=== PATIENT | female | born 1995 | race Caucasian/White ===

== ENCOUNTER 2017-09-13 20:47 | Inpatient (IN) | payer OTHER ==
[2017-09-13] MEDS ORDERED: METHYLERGONOVINE 0.2MG/ML AMP IM PRN (20:59)
[2017-09-13] MEDS ORDERED: BUTORPHANOL 1 MG/ML INJ IV PRN (20:59)
[2017-09-13] MEDS ORDERED: PENICILLIN 5 MU in NA CHLORIDE 0.9% 100 ML IV ONE (20:59)
[2017-09-13] MEDS ORDERED: PROMETHAZINE 25 MG/ML VIAL IM PRN (20:59)
[2017-09-13] MEDS ORDERED: MEPERIDINE HCL 25 MG/0.5 ML IV PRN (20:59)
[2017-09-13] MEDS ORDERED: Ringers Lactate 1,000 ML IV PRN (20:59)
[2017-09-13] MEDS ORDERED: CARBOPROST TROME 250 MCG/ML IM PRN (20:59)
[2017-09-13] MEDS ORDERED: Ringers Lactate 1,000 ML IV SCH (21:00)
[2017-09-13] MEDS ORDERED: OXYTOCIN/LR 20 UNIT/1,000 ML BAG IV SCH (21:00)
[2017-09-13] MEDS ORDERED: PENICILLIN G POT 5 MU/100 ML BAG IV ONE (21:12)
[2017-09-13 21:29] LABS: RPR Titer ND
[2017-09-13 21:32] LABS: Absolute Lymphocytes (CBC) 2.1 K/uL (0.7-4.9); Absolute Monocytes 0.7 K/uL (0.1-1.3); Absolute Neutrophil 4.8 K/uL (1.8-8.0); Basophils % 0.3 % (0-1.3); Eosinophils % 1.7 % (0-4.4); Lymphocytes % 27.2 % (15.3-44.8); MCH 30.7 pg (27.0-35.0); MCV 89.3 fL (80-100); MPV 9.7 fL (7.6-11.3); Monocytes % 8.7 % (3.3-12.3); RBC Red Blood Cell Count 3.36 M/uL (3.86-4.86)
[2017-09-13 22:08] VITALS: BMI 32.9
[2017-09-13] MEDS ORDERED: ROPIVACAINE HCL 100 ML IV PRN (23:50)
[2017-09-13] MEDS ORDERED: ROPIVACAINE HCL 0.2% 20ML AMP IV ONE (23:54)
[2017-09-13] MEDS ORDERED: FENTANYL CITR 100 MCG/2 ML IV ONE (23:57)
[2017-09-14] MEDS ORDERED: PENICILLIN 2.5 MU in NA CHLORIDE 0.9% 100 ML IV SCH (01:00)
[2017-09-14] MEDS ORDERED: PENICILLIN G POT 5 MU/VIAL IV ONE (01:20)
[2017-09-14] MEDS ORDERED: NA CHLORIDE 0.9% 200 ML IV ONE (01:21)
[2017-09-14] MEDS ORDERED: BISACODYL 10 MG RECTAL SUPP RECT PRN (01:54)
[2017-09-14] MEDS ORDERED: Oxycodone HCl/Acetaminophen 1 TAB TAB PO PRN ×2 (01:54)
[2017-09-14] MEDS ORDERED: ACETAMINOPHEN 500 MG TAB PO PRN (01:54)
[2017-09-14] MEDS ORDERED: DIPHENHYDRAMINE 25 MG TAB/CAP PO PRN (01:54)
[2017-09-14] MEDS ORDERED: DOCUSATE NA/SENNA CONC 1 TAB PO PRN (01:54)
[2017-09-14] MEDS ORDERED: MEASLES,MUMPS,RUBELLA VAC 0.5ML SUBQ ONE (01:54)
[2017-09-14] MEDS ORDERED: OXYTOCIN/LR 20 UNIT/1,000 ML BAG IV SCH (02:00)
--- NOTE | 2017-09-14 03:29 | PREOPHP ---
Date of Admission: 09/13/2017 History: A 22-year-old multiparous female, 3, para 3. The patient has a history of early de liveries, 36 weeks and 6 days on admission, in active labor, 37 weeks on delivery. The patient came in in active labor. Epidural anesthesia was established at 4 cm. The patient went rapidly to comple te. Second stage consisted of 1 push. Delivery of an estimated 6-pound plus female. Apgars 9, 9 or 9, 10. No episiotomy. No laceration. Schultze delivery of the placenta. Estimated blood loss les s than 200 cc. No episiotomy. No lacerations worthy of suturing. The patient received one 5 millio n unit dose of penicillin prophylaxis for beta-strep positive status and a partial dose. Tolerated a ll procedures well. Final Diagnoses: Intrauterine gestation, 37 weeks at the time of delivery, epidural anesthesia, peni cillin prophylaxis. TIA/ROMINA Voice ID: [id number]
[2017-09-14] MEDS: IBUPROFEN 200 MG TAB PO PRN ×2 (08:13→17:38)
[2017-09-14] MEDS ORDERED: Tdap (Diph,Pertuss(Acell),Tet Vac) 0.5 ML SYR IMVAC ONE (08:40)
[2017-09-14 20:56] LABS: RPR (Rapid Plasma Reagin) NON-REACT (NON-REACT)
[2017-09-15 07:41] VITALS: BP 118/76; TEMP 96.9
--- NOTE | 2017-09-15 11:01 | DS ---
Date of Discharge: 09/15/2017 This is a 22-year-old, 3, para 2, at 36 weeks 6 days on admission, 37 weeks on delivery. His tory of early labor. Rh positive, nonimmune to Rubella. Beta strep positive. Admitted with ruptured membranes and in early labor. Delivered at a litter after 1 o'clock in the morning of a 6-pound 4 o unce female. Apgars 9 and 9 or even 9 and 10. No episiotomy. No laceration. Schultze delivery of the placenta was inspected and noted to be intact and normal. Less than 200 cc blood loss. The kenney ent has received 1 full dose of 5 million units of penicillin and 1 partial dose of 2.5 million units of penicillin. is afebrile, ambulating, and voiding. Lochia is normal. She had an epid ural and has no post epidural problems. Dismissed this morning to return to my office in 6 weeks for followup, to report any temperature elevation of 100 degrees or greater, severe pain, heavy bleeding , or any other type of abnormalities. Given 10 tramadol tablets, although she says she has probably will not even get prescription filled and may in fact destroy the prescription before she leaves the hospital. Final Diagnoses: Intrauterine gestation, 37 weeks at delivery, epidural anesthesia, penicillin proph ylaxis. Rubella immunization needed. Tdap has been offered numerous times during the and again today, the patient declines. TIA/ROMINA Voice ID: [id number] Report ID: [id number]
--- NOTE | 2017-09-17 11:19 | OP ---
Surgeon: Micky Mahan MD A 22-year-old, 3, para 2, history of labor with the last delivery, 36 weeks and 6 day s on admission, came in early labor. Rh positive, nonimmune to Rubella. This has been discussed and refused Tdap administration during her several times. Admitted with ruptured membranes, i n early labor. Went fairly rapidly to complete. Requested and received epidural anesthesia. Second stage of 30 minutes or less. Spontaneous vaginal delivery of a 6-pound 4 ounce female, Apgars 9 and 9. No episiotomy. No laceration. Schultze delivery of the placenta. Less than 200 cc blood loss. The patient received penicillin 5 million units and a partial dose of 2.5 million units before the delivery. Final Diagnoses: Intrauterine gestation, 37 weeks at time of delivery. Penicillin prophylaxis, Tdap , and Rubella immunization discussed several times. TIA/ROMINA Voice ID: [id number] Report ID: [id number]
[2017-09-18 13:31] LABS: HBsAG Nonreactive (Nonreactive)
--- NOTE | 2017-09-21 07:41 | OP ---
Surgeon: Micky Mahan MD Indication And Procedure: Marie Mark is a 22-year-old 3, para 2, 36 weeks 6 days, history of early labor, came in, in labor, Rh positive, nonimmune to Rubella, beta Strep positive. Admitted with ruptured membranes and in early labor. Delivered of a 6-pound 4-ounce female. Apgars 9 and 9. No episiotomy. No laceration. Schultze delivery of the placenta, inspected and noted to be intact and normal. Less than 200 cc blood loss. The patient received 1 full dose of penicillin 5 million units and a partial dose of 2.5 million units before the delivery, tolerated all procedures well. Final Diagnoses: Thirty-seven weeks at time of delivery. Penicillin prophylaxis. TIA/ROMINA Voice ID: [id number] Report ID: [id number]
== END 2017-09-15 08:00 | disposition home or self-care (01) | DRG 775 ==
LOC: 2ND-WC 20:47
PROVIDERS: ADMIT Specialist; ATTEND Specialist
PROC: 10E0XZZ Delivery of Products of Conception, External Approach (ICD-10-PCS; principal; 2017-09-14)
DX: O99.824 Streptococcus B carrier state complicating childbirth (principal); Z3A.37 37 weeks gestation of pregnancy; Z37.0 Single live birth; Z28.21 Immunization not carried out because of patient refusal; Z91.040 Latex allergy status
CPT/HCPCS: 36415; 83986; 85025; 86592; 86901; 87340; J2210; J2590; J2795; J3010

== ENCOUNTER 2018-07-10 11:42 | Emergency (ER) | payer OTHER, SELFPAY ==
[2018-07-10 13:13] LABS: Urine Blood NEGATIVE (NEG); Urine Glucose NEGATIVE (NEG); Urine Protein NEGATIVE (NEG); Urine Specific Gravity 1.015 (1.005-1.030); Urine pH 7.5 (5.0-7.0)
[2018-07-10 14:03] LABS: Absolute Lymphocytes (CBC) 2.3 K/uL (0.7-4.9); Absolute Monocytes 0.3 K/uL (0.1-1.3); Basophils % 0.7 % (0-1.3); Eosinophils % 4.4 % (0-4.4); Hematocrit 44.1 % (36.0-45.0); Lymphocytes % 38.8 % (15.3-44.8); MPV 9.8 fL (7.6-11.3); Monocytes % 5.1 % (3.3-12.3); RBC Red Blood Cell Count 4.77 M/uL (3.86-4.86)
[2018-07-10 14:21] LABS: ALT/SGPT 35 U/L (12-78); AST/SGOT 28 U/L (15-37); Albumin 4.6 g/dL (3.4-5.0); Alkaline Phosphatase 102 U/L (45-117); BUN Blood Urea Nitrogen 9 mg/dL (7-18); Bicarbonate 31 mmol/L (21-32); Bilirubin Direct 0.2 mg/dL (0-0.2); Bilirubin Total 0.7 mg/dL (0.2-1.0); Glucose Level 87 mg/dL (74-106); Lipase 163 U/L (73-393); Potassium 3.8 mmol/L (3.5-5.1); Protein, Total 8.5 g/dL (6.4-8.2); Sodium Level 139 mmol/L (136-145)
[2018-07-10] MEDS ORDERED: TRAMADOL HCL 50 MG TAB ONE (14:45)
--- NOTE | 2018-07-10 14:50 | RAD REPORT ---
EXAM DESCRIPTION: CT - Abdomen Pelvis W Contrast - 07/10/2018 2:38 pm CLINICAL HISTORY: Abdominal pain/hematochezia. COMPARISON: none. TECHNIQUE: Computed axial tomography of the abdomen pelvis was obtained. 100 cc Isovue-300 was admin istered intravenously. Oral contrast was not requested which limits evaluation of bowel. All CT scans are performed using dose optimization technique as appropriate and may include automated exposure control or mA/KV adjustment according to patient size. FINDINGS: The liver, spleen, pancreas, adrenal and kidneys appear unremarkable. There is no evidence of diverticulitis. Normal appendix 2 centimeter left ovarian cyst without significant free fluid IMPRESSION: A 2 centimeter left ovarian cyst without significant free fluid
--- NOTE | 2018-07-10 16:30 | EDPHYS ---
Physician Documentation [facility] Name: Marie Mark Age: 23 yrs Sex: Female : 1995 Arrival Date: 07/10/2018 Time: 11:46 Bed 25 Private MD: ED Physician Tushar Crespo HPI: 07/10 18:49 This 23 yrs old Female presents to ER via Ambulatory with complaints of kdr Bloody Stools, Weakness. 18:49 The patient presents with abdominal pain that is diffuse, abdominal distention that is kdr diffuse. Onset: The symptoms/episode began/occurred gradually, Began on Saturday and has been intermittent since. The symptoms do not radiate. Associated signs and symptoms: Pertinent positives: nausea, dark blood rectally. The symptoms are described as achy, crampy, intermittent, vague, waxing/waning. Modifying factors: The symptoms are alleviated by. Severity of pain: At its worst the pain was moderate in the emergency department the pain has improved moderately. The patient has not experienced similar symptoms in the past. The patient has not recently seen a physician. 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 - Social history:: Smoking status: Patient uses tobacco products, smokes one-half pack cigarettes per day. - Ebola Screening: : Patient negative for fever greater than or equal to 101.5 degrees Fahrenheit, and additional compatible Ebola Virus Disease symptoms Patient denies exposure to infectious person Patient denies travel to an Ebola-affected area in the 21 days before illness onset No symptoms or risks identified at this time. ROS: 18:49 Constitutional: Negative for fever, chills, and weight loss, Eyes: Negative for injury, kdr pain, redness, and discharge, ENT: Negative for injury, pain, and discharge, Neck: Negative for injury, pain, and swelling, Cardiovascular: Negative for chest pain, palpitations, and edema, Respiratory: Negative for shortness of breath, cough, wheezing, and pleuritic chest pain, Back: Negative for injury and pain, : Negative for injury, bleeding, discharge, and swelling, MS/Extremity: Negative for injury and deformity, Skin: Negative for injury, rash, and discoloration, Neuro: Negative for headache, weakness, numbness, tingling, and seizure activity. Psych: Negative for depression, anxiety, suicide ideation, homicidal ideation, and hallucinations, Allergy/Immunology: Negative for hives, rash, and allergies, Endocrine: Negative for neck swelling, polydipsia, polyuria, polyphagia, and marked weight changes, Hematologic/Lymphatic: Negative for swollen nodes, abnormal bleeding, and unusual bruising. 18:49 Abdomen/GI: Positive for abdominal pain, nausea, abdominal cramps, abdominal distension, rectal bleeding, Negative for vomiting, abdominal distension, dysphagia, hematemesis, black/tarry stool. Exam: 18:49 Constitutional: This is a well developed, well nourished patient who is awake, alert, kdr and in no acute distress. Head/Face: Normocephalic, atraumatic. Eyes: Pupils equal round and reactive to light, extra-ocular motions intact. Lids and lashes normal. Conjunctiva and sclera are non-icteric and not injected. Cornea within normal limits. Periorbital areas with no swelling, redness, or edema. Neck: Trachea midline, no thyromegaly or masses palpated, and no cervical lymphadenopathy. Supple, full range of motion without nuchal rigidity, or vertebral point tenderness. No Meningismus. Chest/axilla: Normal chest wall appearance and motion. Nontender with no deformity. No lesions are appreciated. Cardiovascular: Regular rate and rhythm with a normal S1 and S2. No gallops, murmurs, or rubs. Normal PMI, no JVD. No pulse deficits. Respiratory: Lungs have equal breath sounds bilaterally, clear to auscultation and percussion. No rales, rhonchi or wheezes noted. No increased work of breathing, no retractions or nasal flaring. Back: No spinal tenderness. No costovertebral tenderness. Full range of motion. 18:49 Abdomen/GI: Inspection: abdomen appears normal, Bowel sounds: diminished, in all quadrants, Palpation: soft, mild abdominal tenderness, in the right upper quadrant, left upper quadrant, right lower quadrant and abdomen diffusely, mass, is not appreciated, rebound tenderness, is not appreciated, voluntary guarding, is not appreciated, involuntary guarding, is not appreciated, Rectal exam: rectal tone normal, Stool: licona, guaiac negative. Vital Signs: 12:20 BP 134 / 75; Pulse 85; Resp 16; Temp 98.4; Pulse Ox 99% on R/A; Weight 77.11 kg; Height iw 5 ft. 2 in. (157.48 cm); Pain 6/10; 13:05 BP 112 / 73; Pulse 83; Resp 17 S; Temp 98.1(O); Pulse Ox 98% on R/A; ca1 14:00 BP 112 / 82; Pulse 70; Resp 17 S; Temp 98(O); Pulse Ox 100% on R/A; ca1 15:00 BP 114 / 75; Pulse 64; Resp 18 S; Temp 98.4(O); Pulse Ox 100% on R/A; ca1 16:00 BP 113 / 72; Pulse 68; Resp 18 S; Temp 98.2(O); Pulse Ox 100% on R/A; ca1 17:00 BP 114 / 73; Pulse 67; Resp 18 S; Temp 98.1(O); Pulse Ox 100% on R/A; ca1 12:20 Body Mass Index 31.09 (77.11 kg, 157.48 cm) iw MDM: 16:29 Patient medically screened. kdr 18:49 Data reviewed: vital signs, nurses notes, old medical records, radiologic studies. kdr Counseling: I had a detailed discussion with the patient and/or guardian regarding: the historical points, exam findings, and any diagnostic results supporting the discharge/admit diagnosis, lab results, radiology results, the need for outpatient follow up. 07/10 12:53 Order name: Urine Culture iw 07/10 12:55 Order name: Urine Dipstick--Ancillary (enter results); Complete Time: 13:40 ms 07/10 12:55 Order name: Urine --Ancillary (enter results); Complete Time: 13:40 ms 07/10 13:10 Order name: Basic Metabolic Panel; Complete Time: 14: ca1 07/10 13:10 Order name: CBC with Diff; Complete Time: 14:27 ca1 07/10 13:10 Order name: Creatinine for Radiology; Complete Time: 14: ca1 07/10 12:53 Order name: Urine Dipstick-Ancillary (obtain specimen); Complete Time: 12:53 iw 07/10 12:53 Order name: Urine Test (obtain specimen); Complete Time: 12:53 iw 07/10 13:10 Order name: Hepatic Function; Complete Time: 14:27 ca1 07/10 13:10 Order name: Lipase; Complete Time: 14:27 ca1 07/10 13:10 Order name: IV Saline Lock; Complete Time: 13:38 ca1 07/10 13:10 Order name: Labs collected and sent; Complete Time: 13:38 ca1 07/10 13:40 Order name: CT Abd/Pelvis - W/Contrast; Complete Time: 16:28 kdr Administered Medications: 14:32 Drug: traMADol 50 mg Route: PO; ca1 17:24 Follow up: Response: No adverse reaction; Pain is decreased ca1 Disposition: 07/10/18 16:29 Discharged to Home. Impression: Abdominal and pelvic pain. - Condition is Stable. - Discharge Instructions: Abdominal Pain, Adult. - Prescriptions for Bentyl 20 mg Oral Tablet - take 1 tablet by ORAL route every 6 hours As needed; 20 tablet. Pepcid 20 mg Oral Tablet - take 1 tablet by ORAL route every 12 hours for 5 days; 10 tablet. Zofran 4 mg Oral Tablet - take 1 tablet by ORAL route every 12 hours As needed; 6 tablet. Tramadol 50 mg Oral Tablet - take 1 tablet by ORAL route every 8 hours as needed; 12 tablet. - Medication Reconciliation Form, Thank You Letter, Antibiotic Education, Prescription Opioid Use form. - Follow up: Private Physician; When: 2 - 3 days; Reason: If symptoms return, Further diagnostic work-up, Recheck today's complaints, Continuance of care, Re-evaluation by your physician. - Problem is new. - Symptoms have improved. Signatures: Dispatcher [employer] EDMS Tushar Crespo MD MD kdr Magdalena Zayas RN RN iw Sirena Upton RN RN ca1 Corrections: (The following items were deleted from the chart) 17:25 16:29 07/10/2018 16:29 Discharged to Home. Impression: Abdominal and pelvic pain. ca1 Condition is Stable. Forms are Medication Reconciliation Form, Thank You Letter, Antibiotic Education, Prescription Opioid Use. Follow up: Private Physician; When: 2 - 3 days; Reason: If symptoms return, Further diagnostic work-up, Recheck today's complaints, Continuance of care, Re-evaluation by your physician. Problem is new. Symptoms have improved. kdr
--- NOTE | 2018-07-10 16:30 | ER ---
Nurse's Notes [facility] Name: Marie Mark Age: 23 yrs Sex: Female : 1995 Arrival Date: 07/10/2018 Time: 11:46 Bed 25 Private MD: Diagnosis: Abdominal and pelvic pain Presentation: 07/10 12:18 Presenting complaint: Patient states: Saturday started having bloating and abd pain, iw Saturday had blood in stool, dark red, had loose stool, last BM was yesterday with blood. Transition of care: patient was not received from another setting of care. Onset of symptoms was July 06, 2018. Risk Assessment: Do you want to hurt yourself or someone else? Patient reports no desire to harm self or others. Initial Sepsis Screen: Does the patient meet any 2 criteria? No. Patient's initial sepsis screen is negative. Does the patient have a suspected source of infection? No. Patient's initial sepsis screen is negative. Care prior to arrival: None. 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 - Social history:: Smoking status: Patient uses tobacco products, smokes one-half pack cigarettes per day. - Ebola Screening: : Patient negative for fever greater than or equal to 101.5 degrees Fahrenheit, and additional compatible Ebola Virus Disease symptoms Patient denies exposure to infectious person Patient denies travel to an Ebola-affected area in the 21 days before illness onset No symptoms or risks identified at this time. Screenin:34 Abuse screen: Denies threats or abuse. Denies injuries from another. Nutritional aj screening: No deficits noted. Tuberculosis screening: No symptoms or risk factors identified. Fall Risk None identified. Assessment: 12:34 General: Appears in no apparent distress. comfortable, Behavior is calm, cooperative, aj appropriate for age. Pain: Complains of pain in right upper quadrant and left upper quadrant. Neuro: Level of Consciousness is awake, alert, obeys commands, Oriented to person, place, time, situation, Appropriate for age. Respiratory: Airway is patent Respiratory effort is even, unlabored, Respiratory pattern is regular, symmetrical. GI: Abdomen is distended, Stools are reported to be Dark red blood streaking. Abdomen is tender to palpation in right upper quadrant and left upper quadrant. Derm: Skin is intact, is healthy with good turgor, Skin is pink, warm \T\ dry. normal. 13:05 Reassessment: Patient appears in no apparent distress at this time. No changes from ca1 previously documented assessment. Patient and/or family updated on plan of care and expected duration. Pain level reassessed. Patient is alert, oriented x 3, equal unlabored respirations, skin warm/dry/pink. 14:00 Reassessment: Patient appears in no apparent distress at this time. Patient and/or ca1 family updated on plan of care and expected duration. Pain level reassessed. Patient is alert, oriented x 3, equal unlabored respirations, skin warm/dry/pink. 14:38 Reassessment: Pt to CT scan. ca1 14:55 Reassessment: Patient appears in no apparent distress at this time. Patient is alert, ca1 oriented x 3, equal unlabored respirations, skin warm/dry/pink. 15:44 Reassessment: Patient appears in no apparent distress at this time. Patient and/or ca1 family updated on plan of care and expected duration. Pain level reassessed. Patient is alert, oriented x 3, equal unlabored respirations, skin warm/dry/pink. 16:40 Reassessment: Patient appears in no apparent distress at this time. Patient is alert, ca1 oriented x 3, equal unlabored respirations, skin warm/dry/pink. Patient states feeling better. 17:20 Reassessment: Pt instructed on not driving self to home or anywhere when taking ca1 Tramadol. PT verbalized understanding of instructions. Vital Signs: 12:20 BP 134 / 75; Pulse 85; Resp 16; Temp 98.4; Pulse Ox 99% on R/A; Weight 77.11 kg; Height iw 5 ft. 2 in. (157.48 cm); Pain 6/10; 13:05 BP 112 / 73; Pulse 83; Resp 17 S; Temp 98.1(O); Pulse Ox 98% on R/A; ca1 14:00 BP 112 / 82; Pulse 70; Resp 17 S; Temp 98(O); Pulse Ox 100% on R/A; ca1 15:00 BP 114 / 75; Pulse 64; Resp 18 S; Temp 98.4(O); Pulse Ox 100% on R/A; ca1 16:00 BP 113 / 72; Pulse 68; Resp 18 S; Temp 98.2(O); Pulse Ox 100% on R/A; ca1 17:00 BP 114 / 73; Pulse 67; Resp 18 S; Temp 98.1(O); Pulse Ox 100% on R/A; ca1 12:20 Body Mass Index 31.09 (77.11 kg, 157.48 cm) iw ED Course: 11:46 Patient arrived in ED. mr 12:12 Tushar Crespo MD is Attending Physician. kdr 12:20 Triage completed. iw 12:20 Arm band placed on. iw 12:22 Nicole Erazo, RN is Primary Nurse. aj 12:34 Patient has correct armband on for positive identification. aj 12:34 No provider procedures requiring assistance completed. aj 13:20 Urine collected: clean catch specimen, clear, chalo colored. jp3 13:25 Pulse ox on. NIBP on. jp3 13:25 Placed in gown. Bed in low position. Call light in reach. Side rails up X 1. jp3 13:35 Initial lab(s) drawn, by me, sent to lab. Inserted saline lock: 22 gauge in left jp3 antecubital area, using aseptic technique. Blood collected. 13:43 Basic Metabolic Panel Sent. ca1 13:43 CBC with Diff Sent. ca1 13:43 Creatinine for Radiology Sent. ca1 13:43 Hepatic Function Sent. ca1 13:43 Lipase Sent. ca1 14:38 CT completed. Patient tolerated procedure well. Patient moved to CT. Patient moved back id from CT. 14:39 CT Abd/Pelvis - W/Contrast In Process Unspecified. EDMS 17:20 IV discontinued, intact, bleeding controlled, No redness/swelling at site. Pressure ca1 dressing applied. Administered Medications: 14:32 Drug: traMADol 50 mg Route: PO; ca1 17:24 Follow up: Response: No adverse reaction; Pain is decreased ca1 Outcome: 16:29 Discharge ordered by . kdr 17:20 Discharged to home ambulatory. ca1 17:20 Condition: stable 17:20 Instructed on discharge instructions, follow up and referral plans. medication usage, Demonstrated understanding of instructions, follow-up care, medications, Prescriptions given X 4. 17:25 Patient left the ED. ca1 Signatures: Dispatcher [employer] Nicole Fung RN RN aj Rittger, Kevin, MD MD [facility] Ousmane, Parul mr Magdalena Zayas RN RN iw Jordan, Nathan nj Pisarski, Jacob jp3 Sirena Upton RN RN ca1 Corrections: (The following items were deleted from the chart) 17:23 17:10 Reassessment: Pt instructed on not driving self to home or anywhere when taking ca1 Tramadol. PT verbalized understanding of instructions ca1
[2018-07-10 17:38] VITALS: O2SAT 100
[2018-07-10 17:42] VITALS: BP 114/73; TEMP 98.1
== END 2018-07-10 17:25 | disposition home or self-care (01) ==
LOC: ER 11:42
DX: R10.9 Unspecified abdominal pain (principal); R10.2 Pelvic and perineal pain; F17.210 Nicotine dependence, cigarettes, uncomplicated
CPT/HCPCS: 36415; 74177; 80048; 80076; 81003; 81025; 83690; 85025; 87086; 87088; 99284; Q9967

== ENCOUNTER 2018-09-15 16:04 | Emergency (ER) | payer SELFPAY ==
[2018-09-15 17:48] LABS: Urine Blood 1+ (NEG); Urine Glucose NEGATIVE (NEG); Urine Protein NEGATIVE (NEG); Urine Specific Gravity 1.015 (1.005-1.030)
[2018-09-15 18:18] LABS: Absolute Lymphocytes (CBC) 2.1 K/uL (0.7-4.9); Basophils % 0.5 % (0-1.3); Hematocrit 36.7 % (36.0-45.0); Lymphocytes % 27.2 % (15.3-44.8); MPV 9.9 fL (7.6-11.3); RBC Red Blood Cell Count 3.92 M/uL (3.86-4.86)
[2018-09-15 18:57] LABS: BUN Blood Urea Nitrogen 5 mg/dL (7-18); Bicarbonate 25 mmol/L (21-32); Glucose Level 85 mg/dL (74-106); HCG, Quantitative 44143 mIU/mL (1-3); Potassium 3.3 mmol/L (3.5-5.1); Sodium Level 140 mmol/L (136-145)
--- NOTE | 2018-09-15 18:59 | EDPHYS ---
Physician Documentation [facility] Name: Marie Mark Age: 23 yrs Sex: Female : 1995 Arrival Date: 09/15/2018 Time: 16:07 Bed 10 Private MD: ED Physician Cj Aggarwal HPI: 09/16 01:36 This 23 yrs old Female presents to ER via Ambulatory with complaints of kb Possible , Vaginal Bleeding. 01:36 The patient presents to the emergency department with vaginal bleeding, that is light. kb course: care: none, Leakage of Fluid: none appreciated, Ultrasound: the patient has not had an ultrasound, Risk/complications: no obvious risks or complications are appreciated. Previous pregnancies: in previous pregnancies patient has had. Associated signs and symptoms: Pertinent positives: vaginal bleeding. The patient has not experienced similar symptoms in the past. The patient has not recently seen a physician. "I think I'm having a miscarriage because I had some bleeding." Took a home test that was positive. States she only took the test because she was having breast tenderness and her told her to take one. Reports she takes her control religiously so she didn't think it would be positive. States her last period was 06/23/18, but she doesn't take the placebo pills in the pack so she misses periods. 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 - Social history:: Smoking status: Patient/guardian denies using tobacco. - Ebola Screening: : No symptoms or risks identified at this time. ROS: 09/16 01:35 Constitutional: Negative for fever, chills, and weight loss, ENT: Negative for injury, kb pain, and discharge, Neck: Negative for injury, pain, and swelling, Cardiovascular: Negative for chest pain, palpitations, and edema, Respiratory: Negative for shortness of breath, cough, wheezing, and pleuritic chest pain, Abdomen/GI: Negative for abdominal pain, nausea, vomiting, diarrhea, and constipation, Back: Negative for injury and pain, MS/Extremity: Negative for injury and deformity, Skin: Negative for injury, rash, and discoloration, Neuro: Negative for headache, weakness, numbness, tingling, and seizure. : Positive for vaginal bleeding, Negative for urinary symptoms. Exam: 01:35 Constitutional: This is a well developed, well nourished patient who is awake, alert, kb and in no acute distress. Head/Face: Normocephalic, atraumatic. ENT: Nares patent. No nasal discharge, no septal abnormalities noted. Tympanic membranes are normal and external auditory canals are clear. Oropharynx with no redness, swelling, or masses, exudates, or evidence of obstruction, uvula midline. Mucous membranes moist. Neck: Trachea midline, no thyromegaly or masses palpated, and no cervical lymphadenopathy. Supple, full range of motion without nuchal rigidity, or vertebral point tenderness. No Meningismus. Chest/axilla: Normal chest wall appearance and motion. Nontender with no deformity. No lesions are appreciated. Cardiovascular: Regular rate and rhythm with a normal S1 and S2. No gallops, murmurs, or rubs. Normal PMI, no JVD. No pulse deficits. Respiratory: Lungs have equal breath sounds bilaterally, clear to auscultation and percussion. No rales, rhonchi or wheezes noted. No increased work of breathing, no retractions or nasal flaring. Abdomen/GI: Soft, non-tender, with normal bowel sounds. No distension or tympany. No guarding or rebound. No evidence of tenderness throughout. Back: No spinal tenderness. No costovertebral tenderness. Full range of motion. Skin: Warm, dry with normal turgor. Normal color with no rashes, no lesions, and no evidence of cellulitis. MS/ Extremity: Pulses equal, no cyanosis. Neurovascular intact. Full, normal range of motion. Neuro: Awake and alert, GCS 15, oriented to person, place, time, and situation. Cranial nerves II-XII grossly intact. Motor strength 5/5 in all extremities. Sensory grossly intact. Cerebellar exam normal. Normal gait. Vital Signs: 09/15 16:14 BP 132 / 76; Pulse 97; Resp 16; Temp 98; Pulse Ox 98% ; Weight 72.57 kg; Height 5 ft. 2 hb in. (157.48 cm); Pain 4/10; 17:11 BP 127 / 75; Pulse 72; Resp 18; Pulse Ox 99% on R/A; aj1 19:47 BP 122 / 79; Pulse 88; Resp 18; Pulse Ox 99% on R/A; aj1 16:14 Body Mass Index 29.26 (72.57 kg, 157.48 cm) hb MDM: 16:51 Patient medically screened. kb 09/16 01:36 Data reviewed: vital signs, nurses notes. Data interpreted: Pulse oximetry: on room air kb is 99 %. Interpretation: normal. Counseling: I had a detailed discussion with the patient and/or guardian regarding: the historical points, exam findings, and any diagnostic results supporting the discharge/admit diagnosis, lab results, radiology results, the need for outpatient follow up, an OB/Gyne specialist, to return to the emergency department if symptoms worsen or persist or if there are any questions or concerns that arise at home. 09/15 17:26 Order name: Quantitative Hcg; Complete Time: 18:59 kb 09/15 17:26 Order name: Abo/rh Typing; Complete Time: 19:07 kb 09/15 17:26 Order name: Basic Metabolic Panel; Complete Time: 18:59 kb 09/15 17:26 Order name: CBC with Diff; Complete Time: 18:23 kb 09/15 17:29 Order name: Urine Dipstick--Ancillary (enter results); Complete Time: 17:49 ss 09/15 17:29 Order name: Urine --Ancillary (enter results); Complete Time: 17:49 ss 09/15 16:32 Order name: Urine Test (obtain specimen); Complete Time: 16:38 kb 09/15 16:32 Order name: Urine Dipstick-Ancillary (obtain specimen); Complete Time: 16:38 kb 09/15 17:26 Order name: IV Saline Lock; Complete Time: 18:16 kb 09/15 17:26 Order name: Labs collected and sent; Complete Time: 18:16 kb 09/15 17:26 Order name: NPO; Complete Time: 17:59 kb 09/15 19:04 Order name: OB Limited; Complete Time: 19:19 EDMS Administered Medications: No medications were administered Disposition: 07:57 Co-signature as Attending Physician, Cj Aggarwal MD I agree with the assessment and wa plan of care. Disposition: 09/15/18 18:53 Discharged to Home. Impression: 11 weeks gestation of . - Condition is Stable. - Discharge Instructions: First Trimester of , [id number]. - Medication Reconciliation Form, Thank You Letter, Antibiotic Education, Prescription Opioid Use form. - Follow up: Emergency Department; When: As needed; Reason: Worsening of condition. Follow up: Private Physician; When: 2 - 3 days; Reason: Recheck today's complaints, Continuance of care, Re-evaluation by your physician. Signatures: Dispatcher [employer] EDLA Sadie Radford, FRAMING MILL OPERATOR-C FRAMING MILL OPERATOR-Jerryb Brittany Enriquez RN RN aj1 Mirian Bae RN RN Cj Aggarwal MD MD wa Corrections: (The following items were deleted from the chart) 09/15 19:04 18:28 Transvaginal Ob+US.RAD.BRZ ordered. [facility] 19:49 18:53 09/15/2018 18:53 Discharged to Home. Impression: 11 weeks gestation of . aj1 Condition is Stable. Forms are Medication Reconciliation Form, Thank You Letter, Antibiotic Education, Prescription Opioid Use. Follow up: Emergency Department; When: As needed; Reason: Worsening of condition. Follow up: Private Physician; When: 2 - 3 days; Reason: Recheck today's complaints, Continuance of care, Re-evaluation by your physician. kb
--- NOTE | 2018-09-15 18:59 | ER ---
Nurse's Notes [facility] [place], [place] Name: Marie Mark Age: 23 yrs Sex: Female : 1995 Arrival Date: 09/15/2018 Time: 16:07 Bed 10 Private MD: Diagnosis: 11 weeks gestation of Presentation: 09/15 16:11 Presenting complaint: Bright red vaginal bleeding and lower abdominal cramping that hb started 1 hr [employer]. 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 LMP June 23. Transition of care: patient was not received from another setting of care. Onset of symptoms was September 15, 2018. Risk Assessment: Do you want to hurt yourself or someone else? Patient reports no desire to harm self or others. Initial Sepsis Screen: Does the patient meet any 2 criteria? No. Patient's initial sepsis screen is negative. Does the patient have a suspected source of infection? No. Patient's initial sepsis screen is negative. Care prior to arrival: None. 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 - Social history:: Smoking status: Patient/guardian denies using tobacco. - Ebola Screening: : No symptoms or risks identified at this time. Screenin:11 Abuse screen: Denies threats or abuse. Denies injuries from another. Nutritional aj1 screening: No deficits noted. Tuberculosis screening: No symptoms or risk factors identified. 19:48 Fall Risk None identified. aj1 Assessment: 17:11 General: Appears in no apparent distress. comfortable, Behavior is calm, cooperative, aj1 appropriate for age. Pain: Complains of pain in right lower quadrant and left lower quadrant Quality of pain is described as crampy. Neuro: Level of Consciousness is awake, alert, obeys commands. Cardiovascular: Patient's skin is warm and dry. Respiratory: Airway is patent Respiratory effort is even, unlabored, Respiratory pattern is regular, symmetrical. GI: No signs and/or symptoms were reported involving the gastrointestinal system. : Reports vaginal bleeding that is bright red, light flow. : Patient reports that vaginal bleeding has slowed down at this time. EENT: No signs and/or symptoms were reported regarding the EENT system. Derm: No signs and/or symptoms reported regarding the dermatologic system. Skin is pink, warm \T\ dry. normal. Musculoskeletal: No signs and/or symptoms reported regarding the musculoskeletal system. Circulation, motion, and sensation intact. 18:16 Reassessment: Patient appears in no apparent distress at this time. No changes from aj1 previously documented assessment. Patient and/or family updated on plan of care and expected duration. Pain level reassessed. Patient is alert, oriented x 3, equal unlabored respirations, skin warm/dry/pink. 19:47 Reassessment: Patient appears in no apparent distress at this time. No changes from aj1 previously documented assessment. Patient and/or family updated on plan of care and expected duration. Pain level reassessed. Patient is alert, oriented x 3, equal unlabored respirations, skin warm/dry/pink. Vital Signs: 16:14 BP 132 / 76; Pulse 97; Resp 16; Temp 98; Pulse Ox 98% ; Weight 72.57 kg; Height 5 ft. 2 hb in. (157.48 cm); Pain 4/10; 17:11 BP 127 / 75; Pulse 72; Resp 18; Pulse Ox 99% on R/A; aj1 19:47 BP 122 / 79; Pulse 88; Resp 18; Pulse Ox 99% on R/A; aj1 16:14 Body Mass Index 29.26 (72.57 kg, 157.48 cm) hb ED Course: 16:07 Patient arrived in ED. mr 16:14 Triage completed. hb 16:14 Arm band placed on right wrist. hb 16:50 Sadie Radford FNP-C is PHCP. kb 16:50 Cj Aggarwal MD is Attending Physician. kb 17:04 Brittany Enriquez, BERNA is Primary Nurse. aj1 17:11 Patient has correct armband on for positive identification. Bed in low position. Call aj light in reach. 17:11 No provider procedures requiring assistance completed. aj1 18:00 Initial lab(s) drawn, by me, sent to lab. Inserted saline lock: 22 gauge in right aj1 antecubital area, using aseptic technique. Blood collected. 19:05 OB Limited In Process Unspecified. EDMS 19:48 IV discontinued, intact, bleeding controlled, No redness/swelling at site. Pressure aj1 dressing applied. Administered Medications: No medications were administered Outcome: 18:53 Discharge ordered by . aniyah 19:48 Discharged to home ambulatory. aj1 19:48 Condition: good 19:48 Discharge instructions given to patient, Instructed on discharge instructions, follow up and referral plans. Demonstrated understanding of instructions, follow-up care. 19:49 Patient left the ED. aj1 Signatures: Dispatcher [employer] EDMS Sadie Radford, ELECTRIC DEICER INSPECTOR-C ELECTRIC DEICER INSPECTOR-Brittany Drummond RN RN aj1 Parul Romeo Heather, BERNA RN hb
--- NOTE | 2018-09-15 19:13 | RAD REPORT ---
EXAM DESCRIPTION: US - OB Limited - 09/15/2018 7:04 pm CLINICAL HISTORY: with pelvic pain and vaginal bleeding FINDINGS: The uterus measures 11 x 8 x 10 centimeters. A normal appearing gestational sac is presen t within the endometrium. Within this is a pole with a crown-rump length 5.1 centimeters. Cardi ac activity 154 beats per minute. Left ovary is normal in size and echotexture. . An adnexal mass is not noted. Right ovary was not seen. No significant free fluid IMPRESSION: Single live intrauterine with an estimated gestational age 11 weeks 6 days ED D 03/31/2019
[2018-09-15 21:23] VITALS: O2SAT 99
[2018-09-15 21:26] VITALS: TEMP 98
[2018-09-15 21:28] VITALS: BP 122/79
== END 2018-09-15 19:49 | disposition home or self-care (01) ==
LOC: ER 16:04
DX: O46.91 Antepartum hemorrhage, unspecified, first trimester (principal); Z3A.11 11 weeks gestation of pregnancy
CPT/HCPCS: 36415; 76815; 80048; 81003; 81025; 84702; 85025; 86900; 86901; 99283

== ENCOUNTER 2020-08-14 13:25 | Emergency (ER) | payer SELFPAY ==
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
[2020-08-14 15:05] LABS: Urine Blood Negative (Negative); Urine Glucose Negative (Negative); Urine Protein Negative (Negative); Urine Specific Gravity 1.015 (1.005-1.030); Urine pH >=9.0 (5.0-7.0)
[2020-08-14 15:53] LABS: Urine Bacteria 20-50 /HPF (<20); Urine RBC <5 /HPF (NONE SEEN)
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
[2020-08-14] MEDS ORDERED: AZITHROMYCIN 250 MG TAB ONE (16:57)
[2020-08-14] MEDS ORDERED: CEFTRIAXONE 500 MG/VIAL ONE (16:57)
[2020-08-14 17:11] VITALS: TEMP 99.4; O2SAT 100
[2020-08-14 17:12] VITALS: BP 123/84
[2020-08-14 20:19] LABS: Urine Specific Gravity/Preg 1.015 (1.005-1.030)
[2020-08-17 14:10] LABS: HIV AG/AB 4TH GEN Non-reactive (Non-reactive)
[2020-08-17 18:49] LABS: HBsAG Nonreactive (Nonreactive)
== END 2020-08-14 16:53 | disposition home or self-care (01) ==
LOC: ER 13:25
DX: A64 Unspecified sexually transmitted disease (principal); T74.21XA Adult sexual abuse, confirmed, initial encounter
CPT/HCPCS: 80074; 81003; 81015; 81025; 87086; 87088; 87210; 87389; 87490; 87590; 96372; 99283; J0696

== ENCOUNTER 2020-09-19 18:55 | Emergency (ER) | payer OTHER, SELFPAY ==
--- OUTSIDE RECORDS SUMMARY | 2020-09-19 18:58 | XMS REPORT | Continuity of Care Document ---
:1995 Author Organization [facility] t Address [address] [place] [address] Care Team Providers Name Role Phone Doctor [...] 2018-02 [facility] 00:00: [address] No Known DA Active U 2018-02 [facility] [place] [facility] 00:00: [address] No Known DA Active U 2013-02 [facility] 00:00: [address] Medications This patient has no known medications. Procedures This patient has no known procedures. Encounters Start End Encounter Admission Attending Care Care Encounter Source Date/Time Date/Time Type Type Clinicians Facility Department ID 2018-10-15 2018-10-15 Driss GROSS [id number] 00:00:00 00:00:00 Only UnassignedGUSTAVO [id number] [facility] [id number] 2018-10-07 2018-10-07 Driss GROSS [id number] 00:00:00 00:00:00 Only Unassigned, GUSTAVO [id number] [place] [id number] 2018-09-29 2018-09-29 Jannet Banegas ORERNESTO [id number] 15:01:06 16:28:59 Bogdan Nacho MANAGER SIMULATION [id number] Visit [facility] [id number] MATERNAL [id number] & CHILD [address] [place] [address] Results Test Description Test Time Test Comments Results Result Comments Source PLACENTA THIRD 2019-02-17 TRIMESTER 17:51:00 RUN DATE: 02/18/19 [facility] PAGE 1 RUN TIME: 1202 Specimen Inquiry RUN USER: INTERFACE SAKINA IENT: MAE JACOBSEN LOC: F.PPUC U #: [id number] AGE/SX: 23/F ROOM: [facility] RE02/10/19[facility] DR: Macho Alvarenga MD : 89 BED: A DIS: 02/15/19 STATUS: DIS IN TLOC: SPEC #: [id number] RECD: 02/14/19 STATUS: SMAI CHEN #: [id number] ADOLFO: 02/14/19- SUBM DR: Macho Alvarenga MD ENTERED: 02/16/19-755 SP TYPE: PLACIII OTHR DR: Vicky Gomez MD ORDERED: LEVEL V SURGICA CODES: [id number] - PLACENTA, NOS COPIES TO: Macho Alvarenga MD [address] [facility] [address] [place] [address] [email or web address] Vicky Gomez MD [address] [facility] [address] [place] [address] PROCEDURES: LEVEL V SURGICA (Incomplete) TISSUES: PLACENTA, NOS - PLACENTA CLINICAL HISTORY 23 year old, 33.4 weeks, [id number], vaginal delivery, PPROM (kr) FINAL DIAGNOSIS Placenta, [...] acute funisitis involving umbilical vein CPT code(s): 17371 pkg/wpadams 02/17/19 CONTINUED ON NEXT PAGE RUN DATE: 02/18/19 [facility] PAGE 2 RUN TIME: 1202 Specimen Inquiry RUN USER: INTERFACE DENICE Long #: [id number] PATIENT: MAE JACOBSEN #[id number] (Continued)-------- -------- GROSS DESCRIPTION The specimen was [...] breakpoint to detect mostsero positive persons. HGB [id number] 06:10:00 Test Item Value Reference Range Interpretation Comments HEMOGLOBIN (test code = HGB) 10.1 g/dL 10.7-13.9 L HEMATOCRIT (test code = HCT) 30.2 % 32.1-42.1 L DRUGS OF ABUSE [id number] 05:22:00 Test Item Value Reference Range Interpretation [...] = PHENCU) 25 ng/m L CBC W/AUTO [id number] 04:46:00 Test Item Value Reference Range Interpretation [...] REQUIRED (test NORMAL NORMAL code = PLTMR) [id number] 20:37:00 Test Item Value Reference Range Interpretation Comments GLUBED (test code = GLUBED) 78 mg/dL 65-110 N [id number] 15:30:00 Test Item Value Reference Range Interpretation Comments GLUBED (test code = GLUBED) 104 mg/dL 65-110 N [id number] 10:51:00 Test Item Value Reference Range Interpretation Comments GLUBED (test code = GLUBED) 83 mg/dL 65-110 N [id number] 07:37:00 Test Item Value Reference Range Interpretation Comments GLUBED (test code = GLUBED) 65 mg/dL 65-110 N [id number] 19:15:00 Test Item Value Reference Range Interpretation Comments GLUBED (test code = GLUBED) 110 mg/dL 65-110 N [id number] 14:56:00 Test Item Value Reference Range Interpretation Comments GLUBED (test code = GLUBED) 74 mg/dL 65-110 N AG HEPATITIS B [id number] 13:01:00 Test Item Value Reference Range Interpretation Comments AG HEPATITIS B SURFACE (test code NONREACTIVE NONREACTIVE = HBSAG) AB HEPATITIS C [id number] 13:01:00 Test Item Value Reference Range Interpretation Comments AB HEPATITIS C (test code = NONREACTIVE NONREACTIVE HCVAB) SIGNAL TO CUTOFF (test code = 0.11 <0.80 N CUTOFF) AB [id number] 13:01:00 Test Item Value Reference Range Interpretation Comments AB TREPONEMA (test code = TREPAB) NONREACTIVE NONREACTIVE AB HIV 1 13:01:00 Test Item Value Reference Range Interpretation Comments AB HIV 1 2 (test NONREACTIVE NONREACTIVE [facility] UPA30[facility]J) 4th Gen HIV Ag/Ab Combo Screen CHEMISTRY 7 [id number] 11:42:00 Test Item Value Reference Range Interpretation [...] = CA) 9.3 mg/dL 8.4-10.2 N LIVER [id number] 11:42:00 Test Item Value Reference Range Interpretation [...] be considered for these patients. GLYCOSYLATED HEMOGLOBIN [id number] 11:41:00 Test Item Value Reference Range Interpretation [...] (test code = MBG) GLUCOSE 1HR POST [id number] 07:24:00 Test Item Value Reference Range Interpretation Comments GLUCOSE 1HR POST PRANDIAL (test 256 MG/DL 100-200 H code = GLU1) 3HR GTT GLU1 GLU1HR from 1231:CF:[id number].COMPREHENSIVE METABOLIC [id number] 07:09:00 Test Item Value Reference Range Interpretation [...] units/L 46-116 H code = ALKP) URINALYSIS [id number] 04:23:00 Test Item Value Reference Range Interpretation [...] code = MUCU) 1+ NONE SEEN GLUCOSE [id number] 03:59:00 Test Item Value Reference Range Interpretation Comments GLUCOSE FASTING (test code = GLUF) 119 mg/dL 65-110 H 3HR GTT GLUF GLUFAST from 1231:CF:K06863R.AG HEPATITIS B [id number] 03:59:00 Test Item Value Reference Range Interpretation Comments AG HEPATITIS B SURFACE (test code NONREACTIVE NONREACTIVE = HBSAG) AB HEPATITIS C [id number] 03:59:00 Test Item Value Reference Range Interpretation Comments AB HEPATITIS C (test code = NONREACTIVE NONREACTIVE HCVAB) SIGNAL TO CUTOFF (test code = 0.11 <0.80 N CUTOFF) AB [id number] 03:59:00 Test Item Value Reference Range Interpretation Comments AB TREPONEMA (test code = TREPAB) NONREACTIVE NONREACTIVE AB HIV 1 03:59:00 Test Item Value Reference Range Interpretation Comments AB HIV 1 2 (test code = CLZ18YJ) NONREACTIVE AG HEPATITIS B [id number] 03:09:00 Test Item Value Reference Range Interpretation Comments AG HEPATITIS B SURFACE (test code NONREACTIVE NONREACTIVE = HBSAG) AB HEPATITIS C [id number] 03:09:00 Test Item Value Reference Range Interpretation Comments AB HEPATITIS C (test code = HCVAB) NONREACTIVE SIGNAL TO CUTOFF (test code = CUTOFF) <0.80 AB [id number] 03:09:00 Test Item Value Reference Range Interpretation Comments AB TREPONEMA (test code = TREPAB) NONREACTIVE NONREACTIVE AB HIV 1 03:09:00 Test Item Value Reference Range Interpretation Comments AB HIV 1 2 (test code = HLP26ZD) NONREACTIVE CHEMISTRY 7 [id number] 02:57:00 Test Item Value Reference Range Interpretation [...] = CA) 9.3 mg/dL 8.4-10.2 N LIVER [id number] 02:57:00 Test Item Value Reference Range Interpretation [...] (HA1C) (test code = GLYHGB) CBC W/AUTO [id number] 02:30:00 Test Item Value Reference Range Interpretation [...]
--- NOTE | 2020-09-19 21:46 | ER ---
Nurse's Notes [facility] Name: Marie Mark Age: 25 yrs Sex: Female : 1995 Arrival Date: 09/19/2020 Time: 18:58 Bed Treatment Private MD: Diagnosis: Acute pharyngitis, unspecified;Headache Presentation: 09/19 19:43 Chief complaint: Patient states: she needs to be Covid tested has been exposed and is bb feeling body aches, headache, throat pain symptoms started today. Coronavirus screen: headache, muscle pain. Ebola Screen: No symptoms or risks identified at this time. Initial Sepsis Screen: Does the patient meet any 2 criteria? No. Patient's initial sepsis screen is negative. Does the patient have a suspected source of infection? No. Patient's initial sepsis screen is negative. Risk Assessment: Do you want to hurt yourself or someone else? Patient reports no desire to harm self or others. Onset of symptoms was September 19, 2020. 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 - Social history:: Smoking status: Reported history of juuling and/or vaping. Screenin:58 Abuse screen: Denies threats or abuse. Denies injuries from another. Nutritional kg screening: No deficits noted. Tuberculosis screening: No symptoms or risk factors identified. Fall Risk None identified. Assessment: 21:57 General: Appears in no apparent distress. Behavior is calm, cooperative, appropriate kg for age, quiet. Pain: Complains of pain in Head, Throat Pain currently is 6 out of 10 on a pain scale. at worst was 8 out of 10 on a pain scale. level that patient reports is acceptable is 3 out of 10 on a pain scale. Quality of pain is described as aching. EENT: Reports pain when swallowing. Vital Signs: 19:43 BP 115 / 74; Pulse 82; Resp 20 S; Temp 98.5(O); Pulse Ox 100% on R/A; Weight 67.59 kg bb (R); Height 5 ft. 2 in. (157.48 cm) (R); Pain 6/10; 22:06 BP 92 / 62; Pulse 63; Resp 20; Pulse Ox 97% on R/A; kg 19:43 Body Mass Index 27.25 (67.59 kg, 157.48 cm) bb ED Course: 18:58 Patient arrived in ED. ds1 19:47 Triage completed. bb 19:47 Arm band placed on Patient placed in waiting room, Patient notified of wait time. Labs bb ordered per protocol. 21:01 Magdaleno Mcdonough PA is PHCP. cp 21:01 Magdaleno Segura MD is Attending Physician. cp 21:25 Judie Bolton, RN is Primary Nurse. vg1 21:58 Patient has correct armband on for positive identification. kg 21:58 No provider procedures requiring assistance completed. Patient did not have IV access kg during this emergency room visit. Administered Medications: No medications were administered Outcome: 21:45 Discharge ordered by MD. cp 21:58 Discharged to home ambulatory. kg 21:58 Condition: good 21:58 Discharge instructions given to patient, Instructed on discharge instructions, follow up and referral plans. Demonstrated understanding of instructions, follow-up care. 22:07 Patient left the ED. kg Signatures: Yesika Real ds1 Celine Lei, RN RN bb Magdaleno Mcdonough PA PA Judie Reese, RN RN vg1 Nahomi Lezama RN RN kg Corrections: (The following items were deleted from the chart) 19:48 19:47 Allergies: No Known Allergies; bb bb
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
[2020-09-19 22:23] VITALS: TEMP 98.5
[2020-09-19 22:24] VITALS: BP 92/62; O2SAT 97
== END 2020-09-19 22:07 | disposition home or self-care (01) ==
LOC: ER 18:55
DX: J02.9 Acute pharyngitis, unspecified (principal); Z20.822 Contact with and (suspected) exposure to COVID-19; Z88.5 Allergy status to narcotic agent
CPT/HCPCS: 87070; 87081; 87804; 99283; U0003

== ENCOUNTER 2020-12-05 10:35 | Emergency (ER) | payer OTHER ==
--- NOTE | 2020-12-05 11:19 | ER ---
Nurse's Notes [facility] Name: Marie Mark Age: 25 yrs Sex: Female : 1995 Arrival Date: 12/05/2020 Time: 10:35 Bed Waiting Private MD: Diagnosis: ED Course: 12/05 10:35 Patient arrived in ED. as 11:13 Patient's name was called from ER lobby. No response. aa5 11:19 Toby Henriquez MD is Attending Physician. aa5 Administered Medications: No medications were administered Outcome: 11:19 Patient left the ED. aa5 Signatures: Ana M Menon Audri, RN RN aa5 Corrections: (The following items were deleted from the chart) 11:15 11:15 Arm band placed on aa5 aa5
== END 2020-12-05 11:19 | disposition left against medical advice (07) ==
LOC: ER 10:35
DX: Z53.21 Procedure and treatment not carried out due to patient leaving prior to being seen by health care provider (principal)

== ENCOUNTER 2022-03-09 18:28 | Emergency (ER) | payer OTHER ==
--- OUTSIDE RECORDS SUMMARY | 2022-03-09 18:33 | XMS REPORT | Continuity of Care Document ---
:1995 Author Organization [facility] t Address [address] [place] [address] Care Team Providers Name Role Phone Macho Alvarenga Attending Clinician Unavailable Jessica Attending Clinician Unavailable Doctor Unassigned, [place] Attending Clinician Unavailable Bogdan Cisse Attending Clinician Macho Alvarenga Admitting Clinician Unavailable Jessica Admitting Clinician Unavailable Payers Payer Name Policy Type Policy Number Effective Date Expiration Date S shahid [place] [id number] 2020 00:00:00 [place] ([place] Problems Condition Condition Condition Status Onset Resolution Last Treating Co mments Source Name Details Category Date Date Treatment Clinician Date Multiparit Multiparit Disease Active U nivers y y 8-19 ity of 00:00: [place] 00 Medical Branch Spotting Spotting Disease Active Unive rs affecting affecting 4-19 [place] Med[place] libby trimester trimester Bran ch Pain of Pain of Disease Active Univers round round 4-19 ity of ligament ligament 00:00: [place] affecting affecting 00 Medi libby , , Br anch antepartum antepartum Other Other Disease Active Univers depression depression 1-30 it y of 00:00: [place] 00 Medical Branch History of History of Disease Active U hiro depression depression 1-30 it y of 00:00: [place] [address] Medical Branch UTI in UTI in Disease Active Univers , , 1-16 it y of antepartum [facility] Overweight Overweight Disease Active U nivers (BMI (BMI 1-10 ity of 25.0-29.9) 25.0-29.9) 00:00: [place] [facility] [place] Short Short Disease Active Univers interval interval 1-10 ity of between between 00:00: [place] pregnancie pregnancie 00 Me dical s s Branch affecting affecting in first in first trimester, trimester, antepartum antepartum Allergies, Adverse Reactions, Alerts Allergy Allergy Status Severity Reaction(s) Onset Inactive Treating Comm ents Source Name Type Date Date Clinician No Known DA Active U 2018-02 [facility] 00:[facility]: [facility] 00 [facility] No Known DA Active U 2018-02 [facility] 2- [facility] s 00:00: Hospita 00 [facility] No Known DA Active U 2018-02 [facility] Allergie 2- [place] s 00:00: [address] Sodium Propensi Active Hives Univers Hypochlo ty to 1-10 ity of rite adverse 00:00: [place] Solution reaction 00 [facility] [place] Codeine Propensi Active Nausea 2016- Univers ty to and/or 1-28 ity of adverse Vomiting 00:00: [place] reaction 00 Medical s Branch No Known DA Active U 2013- [facility] 2-10 [facility] Allergie 00:00: Hospita s 00 [facility] Social History Social Habit Start Date Stop Date Quantity Comments Source ASSERTION 2018-07-07 University of 00:00:00 [facility] Alcohol intake [facility] Sex Assigned At Universit y of [facility] History of 2009-02-20 2018-09-20 Cigarette Smoker Universi ty of tobacco use 00:00:00 00:00:00 [facility] Smoking Status Start Date Stop Date Source Former smoker 2018-09-29 00:00:00 2018-09-29 00:00:00 Universi ty of [facility] Medications Ordered Filled Start Stop Current Ordering Indication Dosage Frequency Signature Comments Components Source Medication Medication Date Date Medication? Clinician (SIG) Name Name 2019- No Take by Unive rs VIT 09-29- mouth. ity of CALC,IRON,F 21:36: 00:00 [place] OLIC 08 :00 Medical ( Branch VITAMIN ORAL) 2019- No Take by Unive rs VIT -29 09- mouth. ity of CALC,IRON,F 21:36: 00:00 [place] OLIC 08 :00 Medical ( Branch VITAMIN ORAL) buPROPion 2019- No 150mg Take 1 Univ ers SR 09-29- tablet by ity of (WELLBUTRIN 00:00: [place] SR[place] 150 mg 00 :00 daily. Medical SR tablet Branch buPROPion 2019- No 150mg Take 1 Univ ers SR 09-29- tablet by ity of (WELLBUTRIN 00:00: 00:[place] SR[place] 150 mg 00 :00 daily. Medical SR tablet Branch Yes Take by Univer s VIT 3-23 mouth. ity of CALC,IRON,F 18:36: [place] OLIC 28 Medical ( Branch VITAMIN ORAL) BUPROPION Yes [id number] TAKE 1 U nivers SR 150 mg 2-28 TABLET BY ity o f SR tablet 00:00: MOUTH [place] 00 DAILY Medical Branch BUPROPION 2019- No [id number] TAKE 1 Univers SR 150 mg 2-28 -19 TABLET BY ity of SR tablet 00:00: 00:00 MOUTH [place] 00 :00 DAILY Medical Branch BUPROPION 2019- No [id number] TAKE 1 Univers SR 150 mg 2-28 -19 TABLET BY ity of SR tablet 00:00: 00:00 MOUTH [place] 00 :00 DAILY Medical Branch No known No Univers medications ity of [facility] No known No [facility] Vital Signs Vital Name Observation Time Observation Value Comments Source Systolic blood 2018-09-29 20:19:00 114 mm[Hg] Univer sity of pressure [facility] Diastolic blood 2018-09-29 20:19:00 71 mm[Hg] Unive rsity of pressure [facility] Heart rate 2018-09-29 20:19:00 81 /min Universi ty of [place] [facility] Body temperature 2018-09-29 20:19:00 37.11 Yamila [facility] ersity of [place] [facility] Respiratory rate 2018-09-29 20:19:00 16 /min [facility] ersity of [place] [facility] Body height 2018-09-29 20:19:00 160 cm Universi ty of [place] [facility] Body weight 2018-09-29 20:19:00 76.658 kg Universi ty of [place] [facility] BMI 2018-09-29 20:19:00 29.94 kg/m2 Universi ty of [place] [facility] Systolic blood 2018-09-29 20:19:00 114 mm[Hg] Univer sity of pressure [place] [facility] Diastolic blood 2018-09-29 20:19:00 71 mm[Hg] Unive rsity of [facility] Medical [facility] Heart rate 2018-09-29 20:19:00 81 /min Universi ty of [place] [facility] Body temperature 2018-09-29 20:19:00 37.11 Yamila [facility] [place] [facility] [place] Respiratory rate 2018-09-29 20:19:00 16 /min [facility] [place] [facility] [place] Body height 2018-09-29 20:19:00 160 cm Universi ty of [place] [facility] Body weight 2018-09-29 20:19:00 76.658 kg Universi ty of [place] [facility] BMI 2018-09-29 20:19:00 29.94 kg/m2 Universi ty of [place] [facility] Procedures Procedure Date / Time Performing Clinician Source Performed [id number] 2019-02-14 00:00:00 REYES [facility] EXTERNAL PROVIDER 2018-10-15 05:01:00 Doctor Unassigned, No [facility] RECORDS [facility] Medical Branch AUTHORIZATION TO RELEASE 2018-10-07 05:01:00 Doctor Unassigned, No [facility] PHI TO [facility] Medical Branch POCT URINALYSIS 2018-09-29 20:21:00 Bogdan Banegas [facility] POCT TEST 2018-09-29 20:20:00 [facility] ASSIGNMENT OF BENEFITS 2018-09-29 19:45:42 Doctor Unassigned, No [facility] Branch Encounters Start End Encounter Admission Attending Care Care Encounter Source Date/Time Date/Time Type Type Clinicians Facility Department ID 2019-02-10 Inpatient RICHARD Alvarenga [facility] [id number] [facility] 02:05:00 [facility] 2020-05-20 2020-05-20 Outpatient GC_SWHAOMC_ PRIV PRIV [id number] [facility] 02:43:00 02:43:00 Tina [id number] [facility] 2018-10-15 2018-10-15 Orders Doctor GROSS [id number] Univers 00:00:00 00:00:00 Only Unassigned, GUSTAVO [id number] ity of [place] [facility] 4.2.7.2.686 Abe as [id number] [address] 2018-10-15 2018-10-15 Orders Doctor GROSS [id number] 00:00:00 00:00:00 Only Unassigned, GUSTAVO [id number] [place] [facility] 4.2.7.2.686 [id number] [facility] 2018-10-07 2018-10-07 Orders Doctor GROSS [id number] Univers 00:00:00 00:00:00 Only Unassigned, GUSTAVO 350.1.13.10 ity of [place] [facility] 4.2.7.2.686 Abe as [phone] [address] 2018-10-07 2018-10-07 Orders Doctor GROSS [id number] 00:00:00 00:00:00 Only Unassigned, GUSTAVO 350.1.13.10 [place] [facility] 4.2.7.2.686 [id number] [facility] 2018-09-29 2018-09-29 Initial ABIMBOLA Banegas [id number] 15:01:06 16:28:59 Roshunda R WATER TECHNICIAN [id number] Visit [facility] 4.2.7.2.686 MATERNAL [id number] & CHILD [address] [place] [address] 2018-09-29 2018-09-29 Initial ABIMBOLA Banegas [id number] 15:01:06 16:28:59 Roshunda R WATER TECHNICIAN 350.1.13.10 ity of Visit [facility] 4.2.7.2.686 Abe as MATERNAL [phone] Med ical & CHILD 107 [facility] 2018-09-29 2018-09-29 Orders Doctor RENATO [id number] Univers 00:00:00 00:00:00 Only Unassigned, GUSTAVO 350.1.13.10 ity of [place] [address]686 Abe as [phone] [address] Results Test Description Test Time Test Comments Results Result Comments Source PLACENTA THIRD 2019-02-17 TRIMESTER 17:51:00 RUN DATE: 02/18/19 [facility] PAGE 1 RUN TIME: 1202 Specimen Inquiry RUN USER: INTERFACE SAKINA KENNT: MAE JACOBSEN LOC: F.PPUC U #: [id number] AGE/SX: 23/F ROOM: [facility] RE02/10/19REG DR: Macho Alvarenga MD : 95 BED: A DIS: 02/15/19 STATUS: DIS IN TLOC: SPEC #: [id number] RECD: 02/14/19 STATUS: SAMI CHEN #: [id number] ADOLFO: 02/14/19- SUBM DR: Macho Alvarenga MD ENTERED: 02/16/19 SP TYPE: PLACIII OTHR DR: Vicky Gomez MD ORDERED: LEVEL V SURGICA CODES: [id number] - PLACENTA, NOS COPIES TO: Macho Alvarenga MD [address], [facility] [address] [place] [address] [email or web address] Vicky Gomez MD [address] [place] [address] PROCEDURES: LEVEL V SURGICA (Incomplete) TISSUES: PLACENTA, NOS - PLACENTA CLINICAL HISTORY 23 year old, 33.4 weeks, [id number], vaginal delivery, PPROM (kr) FINAL DIAGNOSIS Placenta, [...] acute funisitis involving umbilical vein CPT code(s): 75246 pkg/wpd 02/17/19 CONTINUED ON NEXT PAGE RUN DATE: 02/18/19 [facility] PAGE 2 RUN TIME: 1202 Specimen Inquiry RUN USER: INTERFACE DENICE Long #: [id number] PATIENT: MAE JACOBSEN #[id number] (Continued)-------- -------- GROSS DESCRIPTION The specimen was [...] Parenchyma lesions: None Cassettes: A1 through A4 /wpadams 02/16/19 MICROSCOPIC DESCRIPTION The placenta is composed [...] 1 - early, Grade 1 - mild pkg/wpd 02/17/19 ----- Signed Marialuisa Lino 02/17/19 1751 [...] breakpoint to detect mostsero positive persons. HGB [id number] 06:10:00 Test Item Value Reference Range Interpretation Comments HEMOGLOBIN (test code = HGB) 10.1 g/dL 10.7-13.9 L HEMATOCRIT (test code = HCT) 30.2 % 32.1-42.1 L DRUGS OF ABUSE [id number] 05:22:00 Test Item Value Reference Range Interpretation [...] = PHENCU) 25 ng/m L CBC W/AUTO [id number] 04:46:00 Test Item Value Reference Range Interpretation [...] REQUIRED (test NORMAL NORMAL code = PLTMR) [id number] 20:37:00 Test Item Value Reference Range Interpretation Comments GLUBED (test code = GLUBED) 78 mg/dL 65-110 N [id number] 15:30:00 Test Item Value Reference Range Interpretation Comments GLUBED (test code = GLUBED) 104 mg/dL 65-110 N [id number] 10:51:00 Test Item Value Reference Range Interpretation Comments GLUBED (test code = GLUBED) 83 mg/dL 65-110 N [id number] 07:37:00 Test Item Value Reference Range Interpretation Comments GLUBED (test code = GLUBED) 65 mg/dL 65-110 N [id number] 19:15:00 Test Item Value Reference Range Interpretation Comments GLUBED (test code = GLUBED) 110 mg/dL 65-110 N [id number] 14:56:00 Test Item Value Reference Range Interpretation Comments GLUBED (test code = GLUBED) 74 mg/dL 65-110 N AG HEPATITIS B [id number] 13:01:00 Test Item Value Reference Range Interpretation Comments AG HEPATITIS B SURFACE (test code NONREACTIVE NONREACTIVE = HBSAG) AB HEPATITIS C [id number] 13:01:00 Test Item Value Reference Range Interpretation Comments AB HEPATITIS C (test code = NONREACTIVE NONREACTIVE HCVAB) SIGNAL TO CUTOFF (test code = 0.11 <0.80 N CUTOFF) AB [id number] 13:01:00 Test Item Value Reference Range Interpretation Comments AB TREPONEMA (test code = TREPAB) NONREACTIVE NONREACTIVE AB HIV 1 13:01:00 Test Item Value Reference Range Interpretation Comments AB HIV 1 2 (test NONREACTIVE NONREACTIVE Done by [facility] code = [id number]) 4th Gen HIV Ag/Ab Combo Screen CHEMISTRY 7 [id number] 11:42:00 Test Item Value Reference Range Interpretation [...] = CA) 9.3 mg/dL 8.4-10.2 N LIVER [id number] 11:42:00 Test Item Value Reference Range Interpretation [...] be considered for these patients. GLYCOSYLATED HEMOGLOBIN [id number] 11:41:00 Test Item Value Reference Range Interpretation Comments GLYCOSYLATED 5.0 % 4.8-5.9 N Any condition t hat HEMOGLOBIN (HA1C) shortens e rythocyte (test code = GLYHGB) surviva l or decreasesmean erythrocyte age (e.g., recovery from a cute blood loss,hemolytic anemia) will falsely lo wer HGBA1c resultsregardle ss of the method used. HG BA1c results from denisse avery HbSS, HbCC, and [...] (test code = MBG) GLUCOSE 1HR POST [id number] 07:24:00 Test Item Value Reference Range Interpretation Comments GLUCOSE 1HR POST PRANDIAL (test 256 MG/DL 100-200 H code = GLU1) 3HR GTT GLU1 GLU1HR from 1231:CF:[id number].COMPREHENSIVE METABOLIC [id number] 07:09:00 Test Item Value Reference Range Interpretation [...] units/L 46-116 H code = ALKP) URINALYSIS [id number] 04:23:00 Test Item Value Reference Range Interpretation [...] code = MUCU) 1+ NONE SEEN GLUCOSE [id number] 03:59:00 Test Item Value Reference Range Interpretation Comments GLUCOSE FASTING (test code = GLUF) 119 mg/dL 65-110 H 3HR GTT GLUF GLUFAST from 1231:CF:[id number].AG HEPATITIS B [id number] 03:59:00 Test Item Value Reference Range Interpretation Comments AG HEPATITIS B SURFACE (test code NONREACTIVE NONREACTIVE = HBSAG) AB HEPATITIS C [id number] 03:59:00 Test Item Value Reference Range Interpretation Comments AB HEPATITIS C (test code = NONREACTIVE NONREACTIVE HCVAB) SIGNAL TO CUTOFF (test code = 0.11 <0.80 N CUTOFF) AB [id number] 03:59:00 Test Item Value Reference Range Interpretation Comments AB TREPONEMA (test code = TREPAB) NONREACTIVE NONREACTIVE AB HIV 1 03:59:00 Test Item Value Reference Range Interpretation Comments AB HIV 1 2 (test code = NSD65RM) NONREACTIVE AG HEPATITIS B [id number] 03:09:00 Test Item Value Reference Range Interpretation Comments AG HEPATITIS B SURFACE (test code NONREACTIVE NONREACTIVE = HBSAG) AB HEPATITIS C [id number] 03:09:00 Test Item Value Reference Range Interpretation Comments AB HEPATITIS C (test code = HCVAB) NONREACTIVE SIGNAL TO CUTOFF (test code = CUTOFF) <0.80 AB [id number] 03:09:00 Test Item Value Reference Range Interpretation Comments AB TREPONEMA (test code = TREPAB) NONREACTIVE NONREACTIVE AB HIV 1 03:09:00 Test Item Value Reference Range Interpretation Comments AB HIV 1 2 (test code = YVQ68CA) NONREACTIVE CHEMISTRY 7 [id number] 02:57:00 Test Item Value Reference Range Interpretation [...] = CA) 9.3 mg/dL 8.4-10.2 N LIVER [id number] 02:57:00 Test Item Value Reference Range Interpretation [...] (HA1C) (test code = GLYHGB) CBC W/AUTO [id number] 02:30:00 Test Item Value Reference Range Interpretation [...] REQUIRED (test NORMAL NORMAL code = PLTMR) POCT URINALYSIS W SPECIFIC [id number] 20:21:00 Test Item Value Reference Range Interpretation Comments POCT U SP GRAV (test code = 3255) . 1.005-1.025 POCT PH U (test code = 3254) 6 mg/dl 5-8 POCT U LEUK EST (test code = 2+ Negative - Negative 3263) POCT U NIT (test code = 3262) neg Negative - Negative POCT U PROT (test code = 3259) trace Negative - Negative POCT U GLU (test code = 3256) neg Negative - Negative POCT U KETONE (test code = 3258) neg Negative - Negative POCT U UROBILI (test code = 3260) . 0.2-1 POCT U BILI (test code = 3261) . Negative - Negative POCT U BLD (test code = 3257) neg Negative - Negative POCT U COLOR (test code = 3266) POCT U APPEAR (test code = 3267) [facility] URINALYSIS W SPECIFIC [id number] 20:21:00 Test Item Value Reference Range Interpretation Comments POCT U SP GRAV (test code = 3255) . 1.005-1.025 POCT PH U (test code = 3254) 6 mg/dl 5-8 POCT U LEUK EST (test code = 2+ Negative - Negative 3263) POCT U NIT (test code = 3262) neg Negative - Negative POCT U PROT (test code = 3259) trace Negative - Negative POCT U GLU (test code = 3256) neg Negative - Negative POCT U KETONE (test code = 3258) neg Negative - Negative POCT U UROBILI (test code = 3260) . 0.2-1 POCT U BILI (test code = 3261) . Negative - Negative POCT U BLD (test code = 3257) neg Negative - Negative POCT U COLOR (test code = 3266) POCT U APPEAR (test code = 3267) [facility] [id number] 20:20:00 Test Item Value Reference Range Interpretation Comments POCT PREG (test code = 1605) Positive On board controls acceptable with C Yes Line (test code = 3574) POCT PREG LOT # (test code = 3575) POCT PREG TEST DATE (test code = 3576) [facility] [id number] 20:20:00 Test Item Value Reference Range Interpretation Comments POCT PREG (test code = 1605) Positive On board controls acceptable with C Yes Line (test code = 3574) POCT PREG LOT # (test code = 3575) POCT PREG TEST DATE (test code = 3576) [facility]
[2022-03-09 18:49] LABS: Urine Blood Negative (Negative); Urine Glucose Negative (Negative); Urine Protein Negative (Negative); Urine pH 7.5 (5.0-7.0)
[2022-03-09 19:21] LABS: Urine Bacteria <20 /HPF (<20); Urine Crystals Unidentified Moderate /HPF (None Seen); Urine Mucus Slight /HPF (None Seen); Urine RBC None Seen /HPF (None Seen)
[2022-03-09] MEDS ORDERED: NA CHLORIDE 0.9% 1,000 ML ONE (19:41)
[2022-03-09] MEDS ORDERED: ONDANSETRON 4 MG/2 ML VIAL ONE (19:41)
[2022-03-09] MEDS ORDERED: KETOROLAC 30 MG/ML INJ ONE (19:41)
[2022-03-09 20:10] LABS: Absolute Lymphocytes (CBC) 2.9 K/uL (0.7-4.9); Hematocrit 38.5 % (36.0-45.0); Lymphocytes % 41.9 % (15.3-44.8); MCV 96.4 fL (80-100); MPV 9.6 fL (7.6-11.3); RBC Red Blood Cell Count 3.99 M/uL (3.86-4.86)
[2022-03-09 20:15] LABS: Albumin 4.1 g/dL (3.4-5.0); Bilirubin Total 0.4 mg/dL (0.2-1.0); Potassium 3.8 mmol/L (3.5-5.1); Protein, Total 7.3 g/dL (6.4-8.2)
--- NOTE | 2022-03-09 20:18 | RAD REPORT ---
EXAM DESCRIPTION: CTAbdomen Pelvis W Contrast - 03/09/2022 8:10 pm CLINICAL HISTORY: abd pain COMPARISON: Abdomen Pelvis W Contrast dated 07/10/2018 TECHNIQUE: CT of the abdomen and pelvis was performed with IV contrast. All CT scans are performed using dose optimization technique as appropriate and may include automated exposure control or mA/KV adjustment according to patient size. FINDINGS: Lower chest: No acute abnormality. Liver: No acute abnormality or suspicious lesions. Biliary: No biliary ductal dilatation. Stomach: No significant focal abnormality. Duodenum: No significant focal abnormality. Pancreas: No significant abnormality. Spleen: No significant abnormality. Adrenal: No suspicious lesions. Kidney/ureter: No hydronephrosis. No renal calculi. Retroperitoneum: No retroperitoneal adenopathy. Vascular: No aneurysm. Bowel: No significant focal abnormality. Normal appendix. Peritoneum: No ascites or free air. Bladder: Grossly unremarkable. Reproductive: No adnexal masses. Bones: No acute fracture. Other: n/a IMPRESSION: No acute intra-abdominal or pelvic finding. Normal appendix.
--- NOTE | 2022-03-09 21:11 | ER ---
Nurse's Notes [facility] Name: Marie Mark Age: 26 yrs Sex: Female : 1995 Arrival Date: 03/09/2022 Time: 18:32 Bed 11 Private MD: Diagnosis: Lower abdominal pain, unspecified Presentation: 03/09 18:37 Chief complaint: RLQ pain x 2 hours. Pain is worse when standing. Denies urinary s/s. hb Coronavirus screen: At this time, the client does not indicate any symptoms associated with coronavirus-19. Ebola Screen: No symptoms or risks identified at this time. Initial Sepsis Screen: Does the patient meet any 2 criteria? No. Patient's initial sepsis screen is negative. Does the patient have a suspected source of infection? No. Patient's initial sepsis screen is negative. Risk Assessment: Do you want to hurt yourself or someone else? Patient reports no desire to harm self or others. Onset of symptoms was March 09, 2022. 18:37 Method Of Arrival: Ambulatory hb 18:37 Acuity: SOO 3 hb Triage Assessment: 21:23 General: Appears in no apparent distress. Behavior is calm, cooperative. aa9 Historical: - Allergies: 18:38 Codeine; hb - PSHx: 18:38 wisdom teeth; hb - Immunization history:: Adult Immunizations up to date. - Social history:: Smoking status: Patient denies any tobacco usage or history of. Screenin:23 [facility] ED Fall Risk Assessment (Adult) History of falling in the last 3 months, aa9 including since admission No falls in past 3 months (0 pts) Confusion or Disorientation No (0 pts) Intoxicated or Sedated No (0 pts) Impaired Gait No (0 pts) Mobility Assist Device Used No (0 pt) Altered Elimination No (0 pt) Score/Fall Risk Level 0 - 2 = Low Risk. Abuse screen: Denies threats or abuse. Denies injuries from another. Nutritional screening: No deficits noted. Tuberculosis screening: No symptoms or risk factors identified. Assessment: 21:20 Reassessment: pt states,"I want to go home, Can I just go home now? I don't want aa9 anything else done." Notified Prabhakar. 21:24 General: Appears in no apparent distress. Behavior is calm, cooperative. Respiratory: aa9 Airway is patent Respiratory effort is even, unlabored. Vital Signs: 18:37 BP 118 / 79; Pulse 74; Resp 16; Temp 98.6; Pulse Ox 100% on R/A; Weight 61.23 kg; hb Height 5 ft. 2 in. (157.48 cm); Pain 7/10; 18:37 Body Mass Index 24.69 (61.23 kg, 157.48 cm) hb ED Course: 18:32 Patient arrived in ED. rg4 18:33 Sadie Radford FNP-C [facility]. kb 18:33 Sonido Mcmillan MD is Attending Physician. kb 18:38 Triage completed. hb 18:38 Arm band placed on. hb 18:57 Urine --Ancillary (enter results) Sent. hb 18:57 Urine Microscopic Only Sent. hb 19:06 Urine Microscopic Only Sent. hb 19:32 Inserted saline lock: 20 gauge in right antecubital area, using aseptic technique. ls5 Blood collected. 20:12 CT Abd/Pelvis - IV Contrast Only In Process Unspecified. EDMS 21:23 No provider procedures requiring assistance completed. IV discontinued, intact, aa9 bleeding controlled, No redness/swelling at site. Pressure dressing applied. 21:24 Patient has correct armband on for positive identification. Placed in gown. aa9 Administered Medications: 19:44 Drug: NS 0.9% 1000 ml Route: IV; Rate: 1 bolus; Site: right forearm; lg3 21:31 Follow up: Response: No adverse reaction; IV Status: Completed infusion; IV Intake: aa9 900ml 19:45 Drug: TORadol - (ketorolac) 15 mg Route: IVP; Site: right forearm; lg3 21:31 Follow up: Response: No adverse reaction aa9 19:45 Drug: Zofran (Ondansetron) 4 mg Route: IVP; Site: right forearm; lg3 21:31 Follow up: Response: No adverse reaction aa9 Medication: 21:23 VIS not applicable for this client. aa9 Intake: 21:31 IV: 900ml; Total: 900ml. aa9 Outcome: 21:10 Discharge ordered by . kb 21:23 Discharged to home ambulatory. aa9 21:23 Condition: stable 21:23 Discharge instructions given to patient, Instructed on discharge instructions, follow up and referral plans. Demonstrated understanding of instructions, Prescriptions given X 1. 21:24 Patient left the ED. aa9 Signatures: Dispatcher [employer] EDMS Sadie Radford, BRICK MAKER-C BRICK MAKER-Mirian Vieira, RN RN Debra Ramachandran4 Park Rockwell, RN RN lg3 Ashleigh Felder RN RN aa9 Camden Zepeda 5
--- NOTE | 2022-03-09 21:11 | EDPHYS ---
Physician Documentation [facility] Name: Marie Mark Age: 26 yrs Sex: Female : 1995 Arrival Date: 03/09/2022 Time: 18:32 Bed 11 Private MD: ED Physician Sonido Mcmillan HPI: 03/09 23:35 This 26 yrs old Female presents to ER via Ambulatory with complaints of Rib Pain. kb 23:35 The patient presents with abdominal pain right lower quadrant. The patient has not kb experienced similar symptoms in the past. The patient has not recently seen a physician. 23:35 Onset: The symptoms/episode began/occurred today. The symptoms do not radiate. kb Associated signs and symptoms: Pertinent positives: nausea. The symptoms are described as constant. Modifying factors: The symptoms are alleviated by nothing, the symptoms are aggravated by pressure. Severity of pain: At its worst the pain was moderate in the emergency department the pain is unchanged. Historical: - Allergies: 18:38 Codeine; hb - PSHx: 18:38 wisdom teeth; hb - Immunization history:: Adult Immunizations up to date. - Social history:: Smoking status: Patient denies any tobacco usage or history of. ROS: 23:35 Constitutional: Negative for fever, chills, and weight loss. kb 23:35 Abdomen/GI: Positive for abdominal pain, Negative for nausea, vomiting, and diarrhea. 23:35 All other systems are negative. Exam: 23:35 Constitutional: This is a well developed, well nourished patient who is awake, alert, kb and in no acute distress. Head/Face: Normocephalic, atraumatic. ENT: Moist Mucous membranes Cardiovascular: Regular rate and rhythm with a normal S1 and S2. No gallops, murmurs, or rubs. No pulse deficits. Respiratory: Respirations even and unlabored. No increased work of breathing. Talking in full sentences Back: No spinal tenderness. No costovertebral tenderness. Full range of motion. Skin: Warm, dry with normal turgor. Normal color. MS/ Extremity: Pulses equal, no cyanosis. Neurovascular intact. Full, normal range of motion. Neuro: Awake and alert, GCS 15, oriented to person, place, time, and situation. Moves all extremities. Normal gait. Psych: Awake, alert, with orientation to person, place and time. Behavior, mood, and affect are within normal limits. 23:35 Abdomen/GI: Inspection: abdomen appears normal, Bowel sounds: normal, Palpation: soft, in all quadrants, moderate abdominal tenderness, in the right lower quadrant. Vital Signs: 18:37 BP 118 / 79; Pulse 74; Resp 16; Temp 98.6; Pulse Ox 100% on R/A; Weight 61.23 kg; hb Height 5 ft. 2 in. (157.48 cm); Pain 7/10; 18:37 Body Mass Index 24.69 (61.23 kg, 157.48 cm) hb MDM: 18:39 Patient medically screened. kb 23:35 Data reviewed: vital signs, nurses notes. kb 23:35 Differential diagnosis: appendicitis, Ovarian Torsion, ovarian cyst. Test considered kb but Not performed: Ultrasound US transvaginal considered to rule out ovarian torsion, but pt refused. Counseling: I had a detailed discussion with the patient and/or guardian regarding: the historical points, exam findings, and any diagnostic results supporting the discharge/admit diagnosis, lab results, radiology results, the need for outpatient follow up, a family practitioner, to return to the emergency department if symptoms worsen or persist or if there are any questions or concerns that arise at home. 03/09 18:43 Order name: CBC with Diff; Complete Time: 20:24 kb 03/09 18:43 Order name: CMP; Complete Time: 20:24 kb 03/09 18:43 Order name: Lipase; Complete Time: 20:24 kb 03/09 18:47 Order name: Urine Microscopic Only; Complete Time: 19:45 kb 03/09 18:49 Order name: Urine --Ancillary (enter results) eb 03/09 18:49 Order name: Urine Dipstick-Ancillary; Complete Time: 18:50 EDMS 03/09 18:43 Order name: CT Abd/Pelvis - IV Contrast Only; Complete Time: 20:24 kb 03/09 18:43 Order name: IV Saline Lock; Complete Time: 19:31 kb 03/09 18:43 Order name: Labs collected and sent; Complete Time: 19:31 kb 03/09 18:43 Order name: Urine Dipstick-Ancillary (obtain specimen); Complete Time: 18:48 kb 03/09 18:43 Order name: Urine Test (obtain specimen); Complete Time: 18:48 kb Administered Medications: 19:44 Drug: NS 0.9% 1000 ml Route: IV; Rate: 1 bolus; Site: right forearm; lg3 21:31 Follow up: Response: No adverse reaction; IV Status: Completed infusion; IV Intake: aa9 900ml 19:45 Drug: TORadol - (ketorolac) 15 mg Route: IVP; Site: right forearm; lg3 21:31 Follow up: Response: No adverse reaction aa9 19:45 Drug: Zofran (Ondansetron) 4 mg Route: IVP; Site: right forearm; lg3 21:31 Follow up: Response: No adverse reaction aa9 Disposition Summary: 03/09/22 21:10 Discharge Ordered Location: Home kb Condition: Stable kb Diagnosis - Lower abdominal pain, unspecified kb Followup: kb - With: Emergency Department - When: As needed - Reason: Worsening of condition Followup: kb - With: Private Physician - When: 2 - 3 days - Reason: Recheck today's complaints, Continuance of care, Re-evaluation by your physician Discharge Instructions: - Discharge Summary Sheet kb - Pelvic Pain, Female, [id number] kb - Abdominal Pain, Adult, [id number] kb Forms: - Medication Reconciliation Form kb - Thank You Letter kb - Antibiotic Education kb - Prescription Opioid Use kb Prescriptions: - Diclofenac Sodium 75 mg Oral tablet,delayed release (DR/EC) - take 1 tablet by ORAL route 2 times per day As needed; 30 tablet; Refills: 0, kb Product Selection Permitted Signatures: Dispatcher [employer] Sadie Grande, TRANSACTIONAL PARALEGAL-C TRANSACTIONAL PARALEGAL-Mirian Vieira, RN RN Park Duran RN RN lg3 Ashleigh Felder RN aa9 Corrections: (The following items were deleted from the chart) 21:14 20:29 Transvaginal Study (Probe)+[id number] ordered. VEGA FERRARI
[2022-03-09 22:11] VITALS: BP 118/79; TEMP 98.6; O2SAT 100
== END 2022-03-09 21:24 | disposition home or self-care (01) ==
LOC: ER 18:28
DX: R10.31 Right lower quadrant pain (principal)
CPT/HCPCS: 96361; 85025; 36415; 81025; 82565; 83690; 80053; 74177; 96375; 96374; 99284; Q9967; J7030; J2405; 81003; 81015

== ENCOUNTER 2024-01-29 13:33 | Emergency (ER) | payer SELFPAY ==
--- OUTSIDE RECORDS SUMMARY | 2024-01-29 13:36 | XMS REPORT | Continuity of Care Document ---
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
[2024-01-29] MEDS ORDERED: KETOROLAC 30 MG/ML INJ ONE (14:12)
[2024-01-29 14:22] LABS: SARS-CoV-2 Antigen CONTROL BLUE LINE VIS/BG OK; SARS-CoV-2 Antigen Rapid Res Negative (Negative)
[2024-01-29] MEDS ORDERED: ALBUTEROL 2.5 MG/3 ML NEB SOL ONE (14:36)
[2024-01-29] MEDS ORDERED: IPRATROPIUM BROM 0.5MG/2.5ML ONE (14:36)
[2024-01-29] MEDS ORDERED: METHYLPREDNISOLONE 125 MG INJ ONE (14:36)
--- NOTE | 2024-01-29 14:51 | RAD REPORT ---
EXAMINATION: TWO VIEW CHEST XR CLINICAL INDICATION: Female, 28 years old. [facility] MAIN Cough;Congestion Bed: TECHNIQUE: 2 view radiographs of the chest were performed. COMPARISON: None available FINDINGS: The lungs are well inflated and clear. No pneumothorax or sizable effusion. The heart is normal in si ze. Mediastinal contours are unremarkable. IMPRESSION: No acute or significant abnormalities.
--- NOTE | 2024-01-29 15:33 | ER ---
Nurse's Notes [facility] Name: Marie Jose Age: 28 yrs Sex: Female : 1995 Arrival Date: 01/29/2024 Time: 13:33 Bed 18 Private MD: Diagnosis: Acute bronchitis, unspecified Presentation: 01/28 13:42 Chief complaint: Patient states: she started having body aches, nausea, vomiting ap3 diarrhea and shortness of breath since Saturday01/27/24. Coronavirus screen: Client presents with at least one sign or symptom that may indicate coronavirus-19. Ebola Screen: No symptoms or risks identified at this time. Initial Sepsis Screen: Does the patient meet any 2 criteria? No. Patient's initial sepsis screen is negative. Does the patient have a suspected source of infection? No. Patient's initial sepsis screen is negative. Risk Assessment: Do you want to hurt yourself or someone else? Patient reports no desire to harm self or others. Onset of symptoms was January 27, 2024. 13:42 Method Of Arrival: Ambulatory ap3 13:42 Acuity: SOO 3 ap3 Triage Assessment: 13:44 General: Appears ill, Behavior is calm, cooperative, appropriate for age. Pain: ap3 Complains of pain in right posterior lower lobe and left posterior lower lobe and right lower lobe and left lower lobe Pain currently is 6 out of 10 on a pain scale. Pain began 2-3 days ago. Neuro: Level of Consciousness is awake, alert, obeys commands, Oriented to person, place, time, situation, Appropriate for age. Cardiovascular: Patient's skin is warm and dry. Respiratory: Reports shortness of breath cough that is productive, Airway is patent Respiratory effort is even, unlabored, Respiratory pattern is regular, symmetrical, Onset: The symptoms/episode began/occurred gradually. GI: Reports diarrhea, nausea, vomiting. 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 Flu vaccine is not up to date. - Infectious Disease History:: Denies. - Social history:: Smoking status: Reported history of juuling and/or vaping. Screenin:[address] [facility] ED Fall Risk Assessment (Adult) History of falling in the last 3 months, ap3 including since admission No falls in past 3 months (0 pts) Confusion or Disorientation No (0 pts) Intoxicated or Sedated No (0 pts) Impaired Gait No (0 pts) Mobility Assist Device Used No (0 pt) Altered Elimination No (0 pt) Score/Fall Risk Level 0 - 2 = Low Risk Oriented to surroundings, Maintained a safe environment, Educated pt \T\ family on fall prevention, incl call for assistance when getting out of bed, Assessed \T\ reinforced patient's understanding of fall precautions, Hourly rounding (assess needs \T\ fall precautionary measures) done, Used ambulatory aids as needed (educated on \T\ assisted with), Used gait belt as appropriate. Abuse screen: Denies threats or abuse. Nutritional screening: No deficits noted. Tuberculosis screening: No symptoms or risk factors identified. Assessment: 14:40 Reassessment: Patient appears in no apparent distress at this time. Patient and/or db family updated on plan of care and expected duration. Pain level reassessed. Patient is alert, oriented x 3, equal unlabored respirations, skin warm/dry/pink. General: Appears in no apparent distress. comfortable, Behavior is calm, cooperative. Neuro: Level of Consciousness is awake, alert, obeys commands, Oriented to person, place, time, situation. Cardiovascular: No deficits noted. Rhythm is regular. Respiratory: Airway is patent Respiratory effort is even, unlabored, Respiratory pattern is regular, symmetrical, Breath sounds are clear. 15:56 Reassessment: Patient appears in no apparent distress at this time. Patient and/or db family updated on plan of care and expected duration. Pain level reassessed. Patient is alert, oriented x 3, equal unlabored respirations, skin warm/dry/pink. Patient states feeling better. Patient states symptoms have improved. Vital Signs: 13:42 BP 124 / 87; Pulse 87; Resp 18; Temp 98.8; Pulse Ox 100% ; Weight 61.23 kg; Height 5 ap3 ft. 3 in. ; Pain 6/10; 14:07 BP 118 / 84; Pulse 82; Resp 16; Pulse Ox 96% on R/A; db 14:30 BP 117 / 78; Pulse 87; Resp 16; Pulse Ox 96% on R/A; db 15:30 BP 121 / 83; Pulse 89; Resp 16; Pulse Ox 98% on R/A; db 13:42 Body Mass Index 23.91 (61.23 kg, 160.02 cm) ap3 13:42 Pain Scale: Adult ap3 ED Course: 13:35 Patient arrived in ED. mr 13:35 Sadie Radford FNP-C [facility] kb 13:35 Usman Martinez MD is Attending Physician. kb 13:44 Triage completed. ap3 13:46 Arm band placed on right wrist. ap3 14:16 Chest Pa And Lat (2 Views) XRAY In Process Unspecified. EDMS 14:46 Halie Jose, RN is Primary Nurse. db 15:07 Response to oxygen therapy: symptoms improved. db 15:10 Patient has correct armband on for positive identification. Bed in low position. Call db light in reach. Side rails up X 1. Pulse ox on. NIBP on. Warm blanket given. Pillow given. 15:56 Provided Education on: DISCHARGE AND FOLLOWUP. db 15:56 No provider procedures requiring assistance completed. Patient did not have IV access db during this emergency room visit. Administered Medications: 14:40 Drug: MethylPREDNISolone Sodium Succinate IM 125 mg IM once Route: IM; Site: right db deltoid; 15:58 Follow up: Response: No adverse reaction db 14:47 Drug: Albuterol Inhalation 2.5 mg Inhalation once Route: Inhalation; db 15:58 Follow up: Response: No adverse reaction db 14:47 Drug: Ipratropium Inhalation Aerosol 0.5 mg Inhalation once Route: Inhalation; db 15:58 Follow up: Response: No adverse reaction db Medication: 15:56 VIS not applicable for this client. db Outcome: 15:32 Discharge ordered by . kb 15:56 Discharged to home ambulatory, with family, db 15:56 Condition: stable 15:56 Discharge instructions given to patient, Instructed on discharge instructions, follow up and referral plans. Prescriptions given X 2, 15:58 Patient left the ED. db Signatures: Dispatcher [employer] EDMS Sadie Radford FNP-C FNP-Dilcia Ousmane Parul, Reg Reg mr Nicole Mccoy, RN RN ap3 Halie Jose, RN RN db
--- NOTE | 2024-01-29 15:33 | EDPHYS ---
Physician Documentation [facility] Name: aMrie Jose Age: 28 yrs Sex: Female : 1995 Arrival Date: 01/29/2024 Time: 13:33 Bed 18 Private MD: ED Physician Usman Martinez HPI: 01/28 13:38 This 28 yrs old Female presents to ER via Unassigned with complaints of Breathing kb Difficulty. 13:38 Pt is a 28 year old female who presents for fever and cough for 3 days, kb nausea/vomiting/diarrhea today, shortness of breath started last night. States her kids are all on antibiotics for strep. . 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 Flu vaccine is not up to date. - Infectious Disease History:: Denies. - Social history:: Smoking status: Reported history of juuling and/or vaping. ROS: 13:40 Constitutional: As per HPI kb Exam: 13:40 Constitutional: This is a well developed, well nourished patient who is awake, alert, kb and in no acute distress. Head/Face: Normocephalic, atraumatic. ENT: Moist Mucous membranes Cardiovascular: Regular rate Abdomen/GI: Soft, non-tender. No distention Skin: Warm, dry with normal turgor. Normal color. MS/ Extremity: Pulses equal, no cyanosis. Neurovascular intact. Full, normal range of motion. Neuro: Awake and alert, GCS 15, oriented to person, place, time, and situation. 13:40 Respiratory: the patient does not display signs of respiratory distress, Respirations: normal, Breath sounds: wheezing: expiratory that is mild, is heard in the left lower lobe, right lower lobe, left posterior lower lobe and right posterior lower lobe, Vital Signs: 13:42 BP 124 / 87; Pulse 87; Resp 18; Temp 98.8; Pulse Ox 100% ; Weight 61.23 kg; Height 5 ap3 ft. 3 in. ; Pain 6/10; 14:07 BP 118 / 84; Pulse 82; Resp 16; Pulse Ox 96% on R/A; db 14:30 BP 117 / 78; Pulse 87; Resp 16; Pulse Ox 96% on R/A; db 15:30 BP 121 / 83; Pulse 89; Resp 16; Pulse Ox 98% on R/A; db 13:42 Body Mass Index 23.91 (61.23 kg, 160.02 cm) ap3 13:42 Pain Scale: Adult ap3 MDM: 13:35 Medical Screening Exam initiated kb 15:31 Data reviewed: vital signs, nurses notes. kb 15:31 Differential diagnosis: Bronchitis pneumonia, flu, covid, uri, strep. I considered the kb following discharge prescriptions or medication management in the emergency department I discussed and recommended Over The Counter medications, Antibiotics: At this time antibiotics are not recommended, Antivirals: At this time, antivirals are not recommended. Counseling: I had a detailed discussion with the patient and/or guardian regarding the historical points, exam findings, and any diagnostic results supporting the discharge/admit diagnosis, lab results, radiology results, the need for outpatient follow up, a family practitioner, to return to the emergency department if symptoms worsen or persist or if there are any questions or concerns that arise at home. Response to treatment: the patient's symptoms have markedly improved after treatment. 01/28 13:41 Order name: Flu; Complete Time: 14:28 kb 01/28 13:41 Order name: Strep kb 01/28 13:41 Order name: SARS-COV-2 Antigen Rapid; Complete Time: 14:28 kb 01/28 14:22 Order name: Throat Culture EDMS 01/28 13:41 Order name: Chest Pa And Lat (2 Views) XRAY; Complete Time: 14:57 kb Administered Medications: 14:40 Drug: MethylPREDNISolone Sodium Succinate IM 125 mg IM once Route: IM; Site: right db deltoid; 15:58 Follow up: Response: No adverse reaction db 14:47 Drug: Albuterol Inhalation 2.5 mg Inhalation once Route: Inhalation; db 15:58 Follow up: Response: No adverse reaction db 14:47 Drug: Ipratropium Inhalation Aerosol 0.5 mg Inhalation once Route: Inhalation; db 15:58 Follow up: Response: No adverse reaction db Disposition: 16:18 Co-signature as Attending Physician, Usman Martinez MD I reviewed the patient's care rn provided by the Advanced Practice Provider and agree with the diagnosis and treatment plan. Disposition Summary: 01/29/24 15:32 Discharge Ordered Notes: Location: Home kb Condition: Stable kb Diagnosis - Acute bronchitis, unspecified kb Followup: kb - With: Emergency Department - When: As needed - Reason: Worsening of condition Followup: kb - With: Private Physician - When: 2 - 3 days - Reason: Recheck today's complaints, Continuance of care, Re-evaluation by your physician Discharge Instructions: - Discharge Summary Sheet kb - Acute Bronchitis, Adult, [id number] kb Forms: - Medication Reconciliation Form kb - Antibiotic Education kb - Prescription Opioid Use kb - Patient Portal Instructions kb - Leadership Thank You Letter kb Prescriptions: - albuterol sulfate 90 mcg/actuation Inhalation HFA Aerosol Inhaler - inhale 2 puff INHALATION route every 4 to 6 hours As needed; 1 unit; Refills: kb 0, Product Selection Permitted - Prednisone 20 mg Oral Tablet - take 1 tablet ORAL route once daily for 5 days; 5 tablet; Refills: 0, Product kb Selection Permitted Signatures: Dispatcher [employer] Sadie Grande, PRODUCTION LEADER-C PRODUCTION LEADER-Usman Brown MD MD rn Prokisch, Amanda RN RN ap3 Halie Jose RN RN db
[2024-01-29 16:13] VITALS: TEMP 98.8
[2024-01-29 16:18] VITALS: BP 121/83; O2SAT 98
== END 2024-01-29 15:58 | disposition home or self-care (01) ==
LOC: ER 13:33
DX: J20.9 Acute bronchitis, unspecified (principal); F17.290 Nicotine dependence, other tobacco product, uncomplicated; Z88.5 Allergy status to narcotic agent; Z11.52 Encounter for screening for COVID-19
CPT/HCPCS: 36415; 71046; 87070; 87081; 87804; 87811; 96372; 99284; J2919; J7613; J7644